=== PATIENT | female | born 1950 | race Caucasian/White ===

== ENCOUNTER 2018-07-17 09:33 | Inpatient (IN) | payer MEDICARE ==
[2018-07-17] VITALS (11 sets, daily range): BP systolic 92–153; BP diastolic 46–87
[~2018-07-17] VITALS: Ht 149.9 cm; Wt 66.1 kg
[~2018-07-17 09:33] MED LIST: ASPI-611 PO; ATOR20TA66 PO; CARV-50 PO; CHOL10002 PO; COU4T PO; EZET10TA14 PO; FERR324T4 PO; FURO-150 PO; GLIM1TAB46 PO; HUM7525 SQ; INSU100V12 SQ; KRIL1CAP19 PO; LORA10TA7 PO; METF500T7 PO; OMEP20CA10 PO; POTA10TA15 PO
[2018-07-17 10:25] LABS: BASOPHILS # (AUTO) 0.1 X10'3 (0-0.2); BASOPHILS % (AUTO) 0.8 % (0-1); EOSINOPHILS # (AUTO) 0.1 X10'3 (0-0.9); EOSINOPHILS % (AUTO) 1.1 % (0-6); LYMPHOCYTES # (AUTO) 2.9 X10'3 (1.1-4.8); LYMPHOCYTES % (AUTO) 35.1 % (21-51); MEAN CORPUSCULAR HEMOGLOBIN 30.3 PG (27.0-31.0); MEAN CORPUSCULAR HGB CONC 33.9 g/dL (33.0-36.5); MEAN CORPUSCULAR VOLUME 89.4 FL (78-98); MEAN PLATELET VOLUME 8.7 FL (7.4-10.4); MONOCYTES # (AUTO) 0.9 X10'3 (0-0.9); MONOCYTES % (AUTO) 10.3 % (2-12); NEUTROPHILS # (AUTO) 4.4 X10'3 (1.8-7.7); NEUTROPHILS % (AUTO) 52.7 % (42-75); PLATELET COUNT 356 X10'3 (140-440); RED BLOOD COUNT 2.26 X10'6 (4.20-5.60); RED CELL DISTRIBUTION WIDTH 15.5 % (11.5-14.5); WHITE BLOOD COUNT 8.3 X10'3 (4.5-11.0)
[2018-07-17 10:29] LABS: HEMATOCRIT 20.2 % (35.0-45.0); HEMOGLOBIN 6.8 g/dl (12.0-16.0)
[2018-07-17 10:35] LABS: ALANINE AMINOTRANSFERASE 25 U/L (12-78); ALBUMIN 3.7 G/DL (3.4-5.0); ALBUMIN/GLOBULIN RATIO 1.1 (1.1-1.5); ALKALINE PHOSPHATASE 58 IU/L (46-116); ANION GAP 12 (8-16); ASPARTATE AMINO TRANSFERASE 18 U/L (10-37); BILIRUBIN,TOTAL 0.4 MG/DL (0.1-1.0); BLOOD UREA NITROGEN 50 MG/DL (7-18); BUN/CREATININE RATIO 33.8 (6.6-38.0); CALCIUM 9.7 MG/DL (8.5-10.1); CHLORIDE 102 MMOL/L (99-107); CREATININE 1.48 MG/DL (0.40-0.90); GLUCOSE 234 MG/DL (70-104); POTASSIUM 3.8 MMOL/L (3.5-5.1); SODIUM 139 MMOL/L (135-145); TOTAL CARBON DIOXIDE 24.7 MMOL/L (24-32); eGFR 35 ML/MIN
[2018-07-17] MEDS ORDERED: tranexamic acid 100mg/ml inj. IV ONE (10:45)
[2018-07-17 10:49] LABS: PROTHROMBIN TIME 59.1 SECONDS (9.0-12.0)
[2018-07-17 10:50] LABS: PARTIAL THROMBOPLASTIN TIME 48 SECONDS (22-32)
[2018-07-17] MEDS ORDERED: tranexamic acid inj. 630 MG in normal saline 100ml IV soln 100 ML IV ONE (10:50)
[2018-07-17 10:52] LABS: INR 6.4 INR
[2018-07-17] MEDS ORDERED: phytonadione inj. 10 MG in normal saline 100ml IV soln 99 ML IV ONE (10:55)
[2018-07-17] MEDS ORDERED: pantoprazole 40 MG vial IV ONE (11:10)
[2018-07-17] MEDS ORDERED: ondansetron/PF 4mg/2ml inj IV PRN ×2 (11:25→16:35)
[2018-07-17] MEDS ORDERED: magnesium hydroxide 30ml (MOM) UD suspension PO PRN (11:25)
[2018-07-17] MEDS ORDERED: magnesium 2GM in 50ml NS 50 ML IV PRN ×2 (11:25→16:35)
[2018-07-17] MEDS ORDERED: mag hydrox/Alum hydrox/simeth 30ml oral suspension PO PRN (11:25)
[2018-07-17] MEDS ORDERED: potassium Cl 20 mEq SR tablet PO PRN ×3 (11:25→16:35)
[2018-07-17] MEDS ORDERED: magnesium 4gm in 100ml NS 100 ML IV PRN ×2 (11:25→16:35)
[2018-07-17] MEDS ORDERED: acetaminophen 325mg tablet PO PRN ×3 (11:25→16:35)
[2018-07-17] MEDS ORDERED: potassium Cl 40MEQ/NS 500ml 500 ML IV PRN ×3 (11:25→16:35)
[2018-07-17] MEDS ORDERED: magnesium Cl slow-release 64mg tablet PO PRN (11:25)
[2018-07-17] MEDS ORDERED: dextrose ORAL solution 15 GM/59 ML bottle PO PRN ×2 (11:30)
[2018-07-17] MEDS ORDERED: MESSAGE TO PHARMACY PO ONE (11:30)
[2018-07-17] MEDS ORDERED: glucagon, human recombinant 1mg kit SUBCUT PRN (11:30)
[2018-07-17] MEDS ORDERED: dextrose 50%-water 50ml dispensing syringe IV PRN ×2 (11:30)
--- NOTE | 2018-07-17 11:44 | NUR ---
ASSUMED CARE OF PT FROM ALEXANDREA EDWARDS
[2018-07-17 11:54] LABS: HEMOGLOBIN A1C 6.5 % (4.5-6.2)
--- NOTE | 2018-07-17 12:07 | NUR ---
PICC NURSE COMING DOWN TO START IV PT IS DIFFICULT IV START AND NEEDS A 2ND LINE
[2018-07-17 12:08] LABS: OCCULT BLOOD STOOL POSITIVE (Neg)
--- NOTE | 2018-07-17 12:10 | NUR ---
UNABLE TO OBTAIN A 2ND IV ACCESS POINT, PUT IN A CALL TO THE PICC NURSE FOR ASSISTANCE
--- NOTE | 2018-07-17 12:14 | NUR ---
UNABLE TO START ALL ORDERED IV MEDICATIONS D/T INCOMPATIBILITY, HAVE ALREADY PAGED PICC NURSE, WILL ADVISE PRIMARY RN
[2018-07-17] MEDS ORDERED: ROSU10TA27 PO (12:31)
[2018-07-17] MEDS ORDERED: COU2.5T PO (12:31)
[2018-07-17] MEDS ORDERED: OMEP20TA5 PO (12:31)
[2018-07-17] MEDS ORDERED: FERR324T4 PO (12:31)
[2018-07-17] MEDS ORDERED: METF750T2 PO (12:31)
[2018-07-17] MEDS ORDERED: WARF2TAB PO (12:31)
[2018-07-17] MEDS ORDERED: INSU3INS2 SQ (12:31)
--- NOTE | 2018-07-17 12:46 | NUR ---
PICC NURSE AT BEDSIDE
[2018-07-17] MEDS: pantoprazole 40MG/NS 100ML BAG 100 ML IV SCH ×5 (13:51→23:16)
[2018-07-17] MEDS: normal saline 1000ml 1,000 ML IV SCH ×3 (15:24→18:12)
[2018-07-17] MEDS ORDERED: famotidine 10mg/ml inj IV SCH (15:40)
[2018-07-17] MEDS ORDERED: methylPREDNISolone sod succ 125mg/2ml vial IV ONE (15:40)
[2018-07-17 15:41] LABS: INR 1.8 INR; PROTHROMBIN TIME 17.9 SECONDS (9.0-12.0)
[2018-07-17 15:44] LABS: BASOPHILS % (AUTO) 0.6 % (0-1); EOSINOPHILS # (AUTO) 0.1 X10'3 (0-0.9); EOSINOPHILS % (AUTO) 1.3 % (0-6); LYMPHOCYTES # (AUTO) 2.4 X10'3 (1.1-4.8); LYMPHOCYTES % (AUTO) 34.6 % (21-51); MEAN CORPUSCULAR HGB CONC 33.5 g/dL (33.0-36.5); MEAN CORPUSCULAR VOLUME 89.5 FL (78-98); MEAN PLATELET VOLUME 8.6 FL (7.4-10.4); MONOCYTES # (AUTO) 0.7 X10'3 (0-0.9); MONOCYTES % (AUTO) 10.2 % (2-12); NEUTROPHILS # (AUTO) 3.7 X10'3 (1.8-7.7); NEUTROPHILS % (AUTO) 53.3 % (42-75); PLATELET COUNT 296 X10'3 (140-440); RED BLOOD COUNT 1.84 X10'6 (4.20-5.60); RED CELL DISTRIBUTION WIDTH 15.4 % (11.5-14.5); WHITE BLOOD COUNT 6.9 X10'3 (4.5-11.0)
[2018-07-17] MEDS ORDERED: famotidine/PF 10 mg/ml inj IV ONE (15:50)
[2018-07-17 16:06] LABS: HEMOGLOBIN 5.5 g/dl (12.0-16.0)
[2018-07-17 16:07] LABS: HEMATOCRIT 16.4 % (35.0-45.0)
[2018-07-17 16:14] LABS: MEAN CORPUSCULAR HGB CONC 33.4 g/dL (33.0-36.5); MEAN CORPUSCULAR VOLUME 89.6 FL (78-98); MEAN PLATELET VOLUME 8.3 FL (7.4-10.4); PLATELET COUNT 314 X10'3 (140-440); RED BLOOD COUNT 1.87 X10'6 (4.20-5.60); RED CELL DISTRIBUTION WIDTH 15.7 % (11.5-14.5); WHITE BLOOD COUNT 8.9 X10'3 (4.5-11.0)
[2018-07-17 16:15] LABS: HEMOGLOBIN 5.6 g/dl (12.0-16.0)
[2018-07-17 16:16] LABS: HEMATOCRIT 16.7 % (35.0-45.0)
[2018-07-17] MEDS ORDERED: Neutra Phos packet PO PRN (16:35)
[2018-07-17] MEDS ORDERED: morphine 4 MG/ML inj SYRINge IV PRN ×2 (16:35)
[2018-07-17] MEDS ORDERED: sodium phosphate inj. 15 MMOL in dextrose 5%-water 150 ML IV PRN (16:35)
[2018-07-17] MEDS ORDERED: sodium phosphate inj. 30 MMOL in dextrose 5%-water 250 ML IV PRN (16:35)
--- NOTE | 2018-07-17 16:47 | NUR ---
Extended PIV inserted to the left upper arm cephalic vein x 1 attempt using ultrasound. Alma ortiz. Addendum: 07/17/18 at 1647 by Niki Esquivel RN Amended: Links added.
--- NOTE | 2018-07-17 16:48 | NUR ---
PT'S BP'S AT 14 MINUTE SAM OF FIRST UNIT OF BLOOD INFUSING WERE TRENDING DOWN: 77/37, 88/35, 92/62. MADE DR ARIAS AWARE, NO NEW ORDERS RECEIVED.
--- NOTE | 2018-07-17 17:20 | NUR ---
ASSUMED CARE OF PT FROM ALEXANDREA EDWADRS, PT IS RESTING QUIETLY ON GURNEY, DR MOTA WAS AT BEDSIDE 1720, BP WAS 54/25, PT PLACED IN REVERSE TRENDELBERG AND HE GAVE VERBAL ORDER TO INFUSE PRBC ON PRESSURE BAG, PT SAID SHE FELT OK, NO DIZZINESS, NO LIGHTHEADED, SKIN IS PALE, DRY AND WARM
--- NOTE | 2018-07-17 18:05 | NUR ---
PT IS RECEIVING 2ND UNIT OF PRBC, CONTINUES TO REST QUIETLY ON GURNEY, WAITING FOR ICU BED ASSIGNMENT
--- NOTE | 2018-07-17 18:17 | NUR ---
DR AVILA AT BEDSIDE TO EVAL PT
--- NOTE | 2018-07-17 19:47 | NUR ---
ASSISTING RN WITH PT CARE, 2ND UNIT PRBC FINISHED, PT RESTING QUIETLY ON GURNEY, RESP EVEN AND UNLABORED
--- NOTE | 2018-07-17 20:04 | NUR ---
PT UP TO BEDSIDE COMMODE WITHOUT ASSIST, NO CHEST PAIN, NO DIZZINESS, NO SOB
[2018-07-17] MEDS: insulin glargine (Lantus) pen - multi-dose SQ SCH (21:00)
[2018-07-17 21:05] LABS: BASOPHILS # (AUTO) 0.1 X10'3 (0-0.2); BASOPHILS % (AUTO) 0.5 % (0-1); EOSINOPHILS # (AUTO) 0.1 X10'3 (0-0.9); EOSINOPHILS % (AUTO) 0.5 % (0-6); HEMATOCRIT 27.7 % (35.0-45.0); HEMOGLOBIN 9.4 g/dl (12.0-16.0); LYMPHOCYTES # (AUTO) 2.7 X10'3 (1.1-4.8); LYMPHOCYTES % (AUTO) 26.1 % (21-51); MEAN CORPUSCULAR HEMOGLOBIN 29.3 PG (27.0-31.0); MEAN CORPUSCULAR HGB CONC 33.9 g/dL (33.0-36.5); MEAN CORPUSCULAR VOLUME 86.5 FL (78-98); MEAN PLATELET VOLUME 8.3 FL (7.4-10.4); MONOCYTES # (AUTO) 0.8 X10'3 (0-0.9); MONOCYTES % (AUTO) 7.3 % (2-12); NEUTROPHILS # (AUTO) 6.7 X10'3 (1.8-7.7); NEUTROPHILS % (AUTO) 65.6 % (42-75); PLATELET COUNT 291 X10'3 (140-440); RED BLOOD COUNT 3.21 X10'6 (4.20-5.60); RED CELL DISTRIBUTION WIDTH 16.7 % (11.5-14.5); WHITE BLOOD COUNT 10.3 X10'3 (4.5-11.0)
--- NOTE | 2018-07-17 21:48 | NUR ---
Rec'd trop result of 2.16 from lab, endorsed to IGGY Lopez, he indicates that patient is a pending admit and to notify cable mechanic, message left for May (ICU provider) to return call regarding results.
--- NOTE | 2018-07-17 22:08 | NUR ---
Rec'd report for GRACE Bautista in the ER. Patient will be up to ICU shortly.
--- NOTE | 2018-07-17 22:30 | NUR ---
Patient arrived from ER on [facility] and was able to transfer to hospital bed with standby assist. She is A&O x4, DICK and is appropriate. She continues to have elevated Troponin's and MD is aware, patient reports no chest pain of s/s. I will continue to monitor.
[2018-07-18] VITALS (28 sets, daily range): BP systolic 114–160; BP diastolic 49–88
[2018-07-18] MEDS ORDERED: metoprolol tartrate 50mg tablet PO ONE (00:10)
[2018-07-18] MEDS: pantoprazole 40MG/NS 100ML BAG 100 ML IV SCH ×2 (01:00→05:36)
[2018-07-18 01:51] LABS: BASOPHILS # (AUTO) 0.1 X10'3 (0-0.2); BASOPHILS % (AUTO) 0.5 % (0-1); EOSINOPHILS # (AUTO) 0.1 X10'3 (0-0.9); EOSINOPHILS % (AUTO) 1.2 % (0-6); HEMATOCRIT 27.3 % (35.0-45.0); HEMOGLOBIN 9.2 g/dl (12.0-16.0); LYMPHOCYTES # (AUTO) 2.3 X10'3 (1.1-4.8); LYMPHOCYTES % (AUTO) 21.5 % (21-51); MEAN CORPUSCULAR HEMOGLOBIN 29.3 PG (27.0-31.0); MEAN CORPUSCULAR HGB CONC 33.7 g/dL (33.0-36.5); MEAN CORPUSCULAR VOLUME 86.9 FL (78-98); MEAN PLATELET VOLUME 8.4 FL (7.4-10.4); MONOCYTES % (AUTO) 9.1 % (2-12); NEUTROPHILS # (AUTO) 7.3 X10'3 (1.8-7.7); NEUTROPHILS % (AUTO) 67.7 % (42-75); PLATELET COUNT 275 X10'3 (140-440); RED BLOOD COUNT 3.14 X10'6 (4.20-5.60); RED CELL DISTRIBUTION WIDTH 16.8 % (11.5-14.5); WHITE BLOOD COUNT 10.9 X10'3 (4.5-11.0)
[2018-07-18] MEDS: normal saline 1000ml 1,000 ML IV SCH (04:02)
[2018-07-18 05:12] LABS: BASOPHILS # (AUTO) 0.1 X10'3 (0-0.2); BASOPHILS % (AUTO) 0.6 % (0-1); EOSINOPHILS # (AUTO) 0.2 X10'3 (0-0.9); EOSINOPHILS % (AUTO) 1.6 % (0-6); HEMATOCRIT 25.9 % (35.0-45.0); HEMOGLOBIN 8.7 g/dl (12.0-16.0); LYMPHOCYTES # (AUTO) 1.9 X10'3 (1.1-4.8); LYMPHOCYTES % (AUTO) 16.6 % (21-51); MEAN CORPUSCULAR HEMOGLOBIN 29.3 PG (27.0-31.0); MEAN CORPUSCULAR HGB CONC 33.8 g/dL (33.0-36.5); MEAN CORPUSCULAR VOLUME 86.7 FL (78-98); MEAN PLATELET VOLUME 8.7 FL (7.4-10.4); MONOCYTES # (AUTO) 1.1 X10'3 (0-0.9); MONOCYTES % (AUTO) 9.7 % (2-12); NEUTROPHILS # (AUTO) 8.1 X10'3 (1.8-7.7); NEUTROPHILS % (AUTO) 71.5 % (42-75); PLATELET COUNT 273 X10'3 (140-440); RED BLOOD COUNT 2.98 X10'6 (4.20-5.60); RED CELL DISTRIBUTION WIDTH 16.6 % (11.5-14.5); WHITE BLOOD COUNT 11.3 X10'3 (4.5-11.0)
[2018-07-18 05:29] LABS: ALANINE AMINOTRANSFERASE 21 U/L (12-78); ALBUMIN 3.2 G/DL (3.4-5.0); ALBUMIN/GLOBULIN RATIO 1.1 (1.1-1.5); ALKALINE PHOSPHATASE 51 IU/L (46-116); ANION GAP 16 (8-16); ASPARTATE AMINO TRANSFERASE 50 U/L (10-37); BILIRUBIN,TOTAL 0.5 MG/DL (0.1-1.0); BLOOD UREA NITROGEN 29 MG/DL (7-18); BUN/CREATININE RATIO 24.4 (6.6-38.0); CALCIUM 8.2 MG/DL (8.5-10.1); CHLORIDE 108 MMOL/L (99-107); CREATININE 1.19 MG/DL (0.40-0.90); GLUCOSE 163 MG/DL (70-104); MAGNESIUM 1.3 MG/DL (1.5-2.4); PHOSPHORUS 2.8 MG/DL (2.3-4.5); POTASSIUM 3.5 MMOL/L (3.5-5.1); SODIUM 145 MMOL/L (135-145); TOTAL CARBON DIOXIDE 21.4 MMOL/L (24-32); TOTAL PROTEIN 6.1 G/DL (6.4-8.2); eGFR 45 ML/MIN
[2018-07-18 05:43] LABS: INR 1.2 INR; PROTHROMBIN TIME 11.7 SECONDS (9.0-12.0)
[2018-07-18 05:44] LABS: PARTIAL THROMBOPLASTIN TIME 28 SECONDS (22-32)
--- NOTE | 2018-07-18 06:36 | NUR ---
Problems reprioritized. Patient report given, questions answered & plan of care reviewed with GRACE Mccarty.
[2018-07-18] MEDS: K and/or MAG REPLACEMENT MC SCH (08:00)
[2018-07-18] MEDS ORDERED: metoprolol tartrate 25mg tablet PO SCH (08:00)
[2018-07-18] MEDS ORDERED: fentaNYL/PF 50MCG/1 ML 2ML syringe ONE (08:37)
[2018-07-18] MEDS ORDERED: MIDAZolam 5mg/5ml vial ONE (08:38)
[2018-07-18] MEDS ORDERED: LIDOcaine Viscous 15ml cup ONE (08:38)
[2018-07-18] MEDS ORDERED: amiodarone 150mg/dext, iso-os 100 ML IV ONE (09:40)
[2018-07-18] MEDS ORDERED: pantoprazole 40MG/NS 100ML BAG 100 ML IV SCH (11:00)
[2018-07-18 11:22] LABS: BASOPHILS # (AUTO) 0.1 X10'3 (0-0.2); BASOPHILS % (AUTO) 0.5 % (0-1); EOSINOPHILS # (AUTO) 0.1 X10'3 (0-0.9); EOSINOPHILS % (AUTO) 0.8 % (0-6); HEMOGLOBIN 8.2 g/dl (12.0-16.0); LYMPHOCYTES # (AUTO) 1.2 X10'3 (1.1-4.8); LYMPHOCYTES % (AUTO) 11.2 % (21-51); MEAN CORPUSCULAR HGB CONC 32.9 g/dL (33.0-36.5); MEAN PLATELET VOLUME 8.2 FL (7.4-10.4); MONOCYTES # (AUTO) 0.8 X10'3 (0-0.9); MONOCYTES % (AUTO) 7.3 % (2-12); NEUTROPHILS # (AUTO) 8.7 X10'3 (1.8-7.7); NEUTROPHILS % (AUTO) 80.2 % (42-75); PLATELET COUNT 252 X10'3 (140-440); RED BLOOD COUNT 2.84 X10'6 (4.20-5.60); RED CELL DISTRIBUTION WIDTH 17.5 % (11.5-14.5); WHITE BLOOD COUNT 10.8 X10'3 (4.5-11.0)
[2018-07-18] MEDS: amiodarone/D5 360MG/200ML BAG 200 ML IV SCH ×3 (12:34→21:48)
[2018-07-18] MEDS: insulin Lispro (HumaLOG) vial - multi-dose SQ SCH ×2 (13:26→22:07)
[2018-07-18 16:12] LABS: BASOPHILS # (AUTO) 0.1 X10'3 (0-0.2); BASOPHILS % (AUTO) 0.5 % (0-1); EOSINOPHILS % (AUTO) 0.1 % (0-6); HEMOGLOBIN 7.6 g/dl (12.0-16.0); LYMPHOCYTES # (AUTO) 0.8 X10'3 (1.1-4.8); MEAN CORPUSCULAR HEMOGLOBIN 29.3 PG (27.0-31.0); MEAN CORPUSCULAR HGB CONC 33.2 g/dL (33.0-36.5); MEAN PLATELET VOLUME 8.3 FL (7.4-10.4); MONOCYTES # (AUTO) 0.8 X10'3 (0-0.9); MONOCYTES % (AUTO) 6.4 % (2-12); NEUTROPHILS # (AUTO) 10.2 X10'3 (1.8-7.7); PLATELET COUNT 254 X10'3 (140-440); RED BLOOD COUNT 2.61 X10'6 (4.20-5.60); RED CELL DISTRIBUTION WIDTH 17.1 % (11.5-14.5); WHITE BLOOD COUNT 11.9 X10'3 (4.5-11.0)
--- NOTE | 2018-07-18 18:30 | NUR ---
Patient in room ICU 2044. I have received report from Bibiana EDWARDS and had the opportunity to ask questions and assume patient care.
[2018-07-18] MEDS: OMEGA-3/DHA/EPA/FISH OIL 1 EACH CAPSULE.DR PO SCH (20:26)
[2018-07-18] MEDS: ferrous sulfate 325mg tablet PO SCH (20:26)
[2018-07-18] MEDS: vitamin D (cholecalciferol) 1,000 unit tablet PO SCH (20:27)
[2018-07-18] MEDS: carVEDilol 12.5mg tablet PO SCH (20:27)
[2018-07-18] MEDS: insulin glargine (Lantus) pen - multi-dose SQ SCH (22:06)
[2018-07-19] VITALS (20 sets, daily range): BP systolic 88–125; BP diastolic 39–59
[2018-07-19 03:10] LABS: BASOPHILS % (AUTO) 0.2 % (0-1); EOSINOPHILS % (AUTO) 0 % (0-6); HEMATOCRIT 28.6 % (35.0-45.0); HEMOGLOBIN 9.7 g/dl (12.0-16.0); LYMPHOCYTES # (AUTO) 0.8 X10'3 (1.1-4.8); LYMPHOCYTES % (AUTO) 8.1 % (21-51); MEAN CORPUSCULAR HEMOGLOBIN 29.8 PG (27.0-31.0); MEAN CORPUSCULAR HGB CONC 33.8 g/dL (33.0-36.5); MEAN CORPUSCULAR VOLUME 88.2 FL (78-98); MEAN PLATELET VOLUME 8.1 FL (7.4-10.4); MONOCYTES # (AUTO) 0.8 X10'3 (0-0.9); NEUTROPHILS # (AUTO) 8.4 X10'3 (1.8-7.7); NEUTROPHILS % (AUTO) 83.7 % (42-75); PLATELET COUNT 242 X10'3 (140-440); RED BLOOD COUNT 3.24 X10'6 (4.20-5.60); RED CELL DISTRIBUTION WIDTH 16.2 % (11.5-14.5); WHITE BLOOD COUNT 10.1 X10'3 (4.5-11.0)
[2018-07-19 03:18] LABS: INR 1.1 INR; PROTHROMBIN TIME 11.4 SECONDS (9.0-12.0)
[2018-07-19 03:19] LABS: PARTIAL THROMBOPLASTIN TIME 31 SECONDS (22-32)
[2018-07-19 03:27] LABS: ALANINE AMINOTRANSFERASE 26 U/L (12-78); ALKALINE PHOSPHATASE 53 IU/L (46-116); ANION GAP 14 (8-16); ASPARTATE AMINO TRANSFERASE 54 U/L (10-37); BILIRUBIN,TOTAL 0.8 MG/DL (0.1-1.0); BLOOD UREA NITROGEN 21 MG/DL (7-18); BUN/CREATININE RATIO 14.7 (6.6-38.0); CALCIUM 8.1 MG/DL (8.5-10.1); CHLORIDE 107 MMOL/L (99-107); CREATININE 1.43 MG/DL (0.40-0.90); GLUCOSE 304 MG/DL (70-104); MAGNESIUM 1.3 MG/DL (1.5-2.4); PHOSPHORUS 2.8 MG/DL (2.3-4.5); POTASSIUM 3.6 MMOL/L (3.5-5.1); SODIUM 141 MMOL/L (135-145); TOTAL CARBON DIOXIDE 19.8 MMOL/L (24-32); TOTAL PROTEIN 6.1 G/DL (6.4-8.2); eGFR 37 ML/MIN
--- NOTE | 2018-07-19 06:30 | NUR ---
Patient in room ICU 2044. I have received report from Evelina Espitia RN and had the opportunity to ask questions and assume patient care.
--- NOTE | 2018-07-19 06:30 | NUR ---
Problems reprioritized. Patient report given, questions answered & plan of care reviewed with Bibiana EDWARDS.
[2018-07-19] MEDS: amiodarone/D5 360MG/200ML BAG 200 ML IV SCH (06:48)
[2018-07-19] MEDS: K and/or MAG REPLACEMENT MC SCH (08:00)
[2018-07-19] MEDS: vitamin D (cholecalciferol) 1,000 unit tablet PO SCH ×2 (08:29→20:12)
[2018-07-19] MEDS: carVEDilol 12.5mg tablet PO SCH ×2 (08:29→20:12)
[2018-07-19] MEDS: atorvastatin 10mg tablet PO SCH (08:29)
[2018-07-19] MEDS: ferrous sulfate 325mg tablet PO SCH ×2 (08:30→20:12)
[2018-07-19] MEDS: ezetimibe 10mg tablet PO SCH (08:30)
[2018-07-19] MEDS: OMEGA-3/DHA/EPA/FISH OIL 1 EACH CAPSULE.DR PO SCH ×2 (08:30→20:12)
[2018-07-19] MEDS: magnesium Cl slow-release 64mg tablet PO PRN (08:35)
[2018-07-19] MEDS: insulin Lispro (HumaLOG) vial - multi-dose SQ SCH ×4 (08:47→22:03)
--- NOTE | 2018-07-19 10:45 | NUR ---
co of shortness of breath when laying down in bed, unable to maintain sats on room air, sitting up in bed , o2 placed back on at 2 l/min call placed to Dr Childress and updated and new orders received.
[2018-07-19] MEDS ORDERED: furosemide 40mg/4ml inj IV ONE (11:10)
[2018-07-19] MEDS: amiodarone 200mg tablet PO SCH ×2 (11:14→20:12)
[2018-07-19] MEDS ORDERED: bisacodyl 10mg suppository rectal RC PRN (16:35)
--- NOTE | 2018-07-19 18:00 | NUR ---
Received report from CICU RN, Bibiana @[id number]. Pt arrived at unit at this time (1800) via wheelchair in stable condition, family in attendance. Pt oriented to room, on 2L/min O2. Seated in chair at bedside, call light in reach. Patient report given, questions answered & plan of care reviewed with GRACE Vazquez.
--- NOTE | 2018-07-19 18:00 | NUR ---
transfered via wheelchair, telemetry and RN in attendance to 3015b, all belongings,and meds transfered.
[2018-07-19] MEDS: insulin glargine (Lantus) pen - multi-dose SQ SCH (22:02)
[2018-07-20 03:00] VITALS: BP 111/57
[2018-07-20] MEDS: magnesium Cl slow-release 64mg tablet PO PRN (03:21)
[2018-07-20 06:00] VITALS: BP 113/66
--- NOTE | 2018-07-20 06:21 | NUR ---
Problems reprioritized. Patient report given, questions answered & plan of care reviewed with GRACE Patel.
[2018-07-20 06:38] LABS: BASOPHILS % (AUTO) 0.5 % (0-1); EOSINOPHILS # (AUTO) 0.3 X10'3 (0-0.9); EOSINOPHILS % (AUTO) 3.4 % (0-6); HEMATOCRIT 29.5 % (35.0-45.0); HEMOGLOBIN 10.2 g/dl (12.0-16.0); LYMPHOCYTES # (AUTO) 1.5 X10'3 (1.1-4.8); LYMPHOCYTES % (AUTO) 16.5 % (21-51); MEAN CORPUSCULAR HGB CONC 34.4 g/dL (33.0-36.5); MEAN CORPUSCULAR VOLUME 87.2 FL (78-98); MEAN PLATELET VOLUME 8.8 FL (7.4-10.4); MONOCYTES # (AUTO) 0.9 X10'3 (0-0.9); MONOCYTES % (AUTO) 9.6 % (2-12); NEUTROPHILS # (AUTO) 6.6 X10'3 (1.8-7.7); PLATELET COUNT 268 X10'3 (140-440); RED BLOOD COUNT 3.38 X10'6 (4.20-5.60); RED CELL DISTRIBUTION WIDTH 16.6 % (11.5-14.5); WHITE BLOOD COUNT 9.4 X10'3 (4.5-11.0)
[2018-07-20 06:45] LABS: INR 1.1 INR; PARTIAL THROMBOPLASTIN TIME 25 SECONDS (22-32); PROTHROMBIN TIME 11.1 SECONDS (9.0-12.0)
--- NOTE | 2018-07-20 06:45 | NUR ---
Patient in room PCU 3015. I have received report from GRACE Vazquez and had the opportunity to ask questions and assume patient care.
[2018-07-20 07:10] LABS: ALANINE AMINOTRANSFERASE 78 U/L (12-78); ALBUMIN 2.9 G/DL (3.4-5.0); ALBUMIN/GLOBULIN RATIO 0.9 (1.1-1.5); ALKALINE PHOSPHATASE 85 IU/L (46-116); ANION GAP 13 (8-16); ASPARTATE AMINO TRANSFERASE 110 U/L (10-37); BILIRUBIN,TOTAL 0.7 MG/DL (0.1-1.0); BLOOD UREA NITROGEN 40 MG/DL (7-18); BUN/CREATININE RATIO 21.6 (6.6-38.0); CALCIUM 8.7 MG/DL (8.5-10.1); CHLORIDE 107 MMOL/L (99-107); CREATININE 1.85 MG/DL (0.40-0.90); GLUCOSE 199 MG/DL (70-104); MAGNESIUM 1.6 MG/DL (1.5-2.4); PHOSPHORUS 2.4 MG/DL (2.3-4.5); POTASSIUM 3.4 MMOL/L (3.5-5.1); SODIUM 140 MMOL/L (135-145); TOTAL CARBON DIOXIDE 20.3 MMOL/L (24-32); TOTAL PROTEIN 6.2 G/DL (6.4-8.2); eGFR 27 ML/MIN
[2018-07-20] MEDS: K and/or MAG REPLACEMENT MC SCH (07:19)
[2018-07-20] MEDS: ezetimibe 10mg tablet PO SCH (07:36)
[2018-07-20] MEDS: OMEGA-3/DHA/EPA/FISH OIL 1 EACH CAPSULE.DR PO SCH (07:36)
[2018-07-20] MEDS: amiodarone 200mg tablet PO SCH ×2 (07:37→10:35)
[2018-07-20] MEDS: potassium Cl 20 mEq SR tablet PO PRN ×2 (07:37→11:46)
[2018-07-20] MEDS: ferrous sulfate 325mg tablet PO SCH (07:38)
[2018-07-20] MEDS: vitamin D (cholecalciferol) 1,000 unit tablet PO SCH (07:38)
[2018-07-20] MEDS: atorvastatin 10mg tablet PO SCH (07:38)
[2018-07-20] MEDS: carVEDilol 12.5mg tablet PO SCH (08:00)
[2018-07-20] MEDS ORDERED: furosemide 20MG tablet PO SCH (08:00)
[2018-07-20] MEDS: insulin Lispro (HumaLOG) vial - multi-dose SQ SCH ×2 (08:45→13:12)
[2018-07-20 11:40] VITALS: BP 109/52
--- NOTE | 2018-07-20 11:54 | NUR ---
PAGER ID: [phone] MESSAGE: FYI-PATIENT SAURABH LAWTON ROOM 3015 B AMBULATED 300 FEET WITHOUT DIZZINESS, SAT 99% ON RA, RYAN, GRACE EXTENSION , AWAITING RETURN CALL
[2018-07-20] MEDS ORDERED: AMIO200T40 PO (12:10)
--- NOTE | 2018-07-20 12:58 | NUR ---
PAGER ID: [phone] MESSAGE: [id number] Connor Velasquez: Dr Sykes called and recommended stopping the Lasix due to her creatinine levels going up. Do you want her to take the Lasix PO 20mg at home or do you want me to tell her to stop Lasix? GRACE Patel Ext [phone]
--- NOTE | 2018-07-20 16:29 | NUR ---
Discharged. IV and tele DC'd. Stable for DC per MD. DM survival skills given. Educated on meds and follow-up.
--- NOTE | 2018-07-20 18:35 | NUR ---
orientee documentation: I have reviewed and agree with all interventions, assessments performed and documented by GRACE Schulte.
--- NOTE | 2018-07-20 18:36 | NUR ---
orientee Medication Administration: For this medication-pass time frame, all medication were reviewed, dispensed, administered and documented per hospital policy by GRACE Schulte.
== END 2018-07-20 14:20 | disposition home health service (06) | DRG 377 ==
LOC: ER 09:33 → ED HOLD 11:21 → ICU 2S 22:41 → PCU 3S 07-19 18:22
PROVIDERS: ADMIT Internal Medicine; ATTEND Family Medicine
PROC: 30233K1 Transfusion of Nonautologous Frozen Plasma into Peripheral Vein, Percutaneous Approach (ICD-10-PCS; 2018-07-17)
PROC: 30233N1 Transfusion of Nonautologous Red Blood Cells into Peripheral Vein, Percutaneous Approach (ICD-10-PCS; 2018-07-17)
PROC: 30233N1 Transfusion of Nonautologous Red Blood Cells into Peripheral Vein, Percutaneous Approach (ICD-10-PCS; principal; 2018-07-18)
PROC: 0DB68ZX Excision of Stomach, Via Natural or Artificial Opening Endoscopic, Diagnostic (ICD-10-PCS; 2018-07-18)
DX: K92.2 Gastrointestinal hemorrhage, unspecified (principal); I21.A1 Myocardial infarction type 2; N17.9 Acute kidney failure, unspecified; D62 Acute posthemorrhagic anemia; I50.22 Chronic systolic (congestive) heart failure; D68.9 Coagulation defect, unspecified; R57.9 Shock, unspecified; I24.8 Other forms of acute ischemic heart disease; E11.9 Type 2 diabetes mellitus without complications; E78.5 Hyperlipidemia, unspecified; I11.0 Hypertensive heart disease with heart failure; I25.10 Atherosclerotic heart disease of native coronary artery without angina pectoris; I48.0 Paroxysmal atrial fibrillation; K44.9 Diaphragmatic hernia without obstruction or gangrene; M19.90 Unspecified osteoarthritis, unspecified site; Z98.84 Bariatric surgery status; Z95.1 Presence of aortocoronary bypass graft; Z79.01 Long term (current) use of anticoagulants; Z79.82 Long term (current) use of aspirin; Z79.899 Other long term (current) drug therapy; Z88.1 Allergy status to other antibiotic agents; Z80.8 Family history of malignant neoplasm of other organs or systems; Z80.1 Family history of malignant neoplasm of trachea, bronchus and lung; Z82.49 Family history of ischemic heart disease and other diseases of the circulatory system; Z83.3 Family history of diabetes mellitus
CPT/HCPCS: 36415; 43239; 71045; 80053; 82150; 82272; 82948; 83036; 83605; 83690; 83735; 84100; 84439; 84443; 84484; 85025; 85027; 85610; 85730; 86885; 86900; 86901; 86920; 87070; 88305; 93005; 93306; 97161; 97530; 99152; 99291; 99292; C9113; G0378; J0282; J1815; J1940; J2250; J3010; J3430; J3490; J7030; P9016; P9017

== ENCOUNTER 2018-08-10 07:38 | Inpatient (IN) | payer MEDICARE | END 2018-08-11 15:45 | disposition home or self-care (01) | LOC: ER 07:38 → ED HOLD 11:11 → SUR 3N 19:17 ==

== ENCOUNTER 2019-04-08 12:36 | Emergency (ER) | payer MEDICARE ==
[~2019-04-08] VITALS: Ht 149.9 cm; Wt 59.5 kg
[~2019-04-08 12:36] MED LIST changes: +AMIO100T4 PO; +APIX5TAB3 PO; -ASPI-611 PO; -ATOR20TA66 PO; +BENA5TAB6 PO; -COU4T PO; -EZET10TA14 PO; +EZET10TA21 PO; -FERR324T4 PO; -FURO-150 PO; +FURO40TA4 PO; -GLIM1TAB46 PO; -HUM7525 SQ; -INSU100V12 SQ; +INSU3INS2 SQ; +LISI2.5T2 PO; -LORA10TA7 PO; -METF500T7 PO; +METF750T46 PO; -OMEP20CA10 PO; +OMEP40CA13 PO; -POTA10TA15 PO; +POTA20TA19 PO; +ROSU10TA28 PO
[2019-04-08 13:44] LABS: BASOPHILS # (AUTO) 0.1 X10'3 (0-0.2); BASOPHILS % (AUTO) 0.8 % (0-1); EOSINOPHILS # (AUTO) 0.1 X10'3 (0-0.9); EOSINOPHILS % (AUTO) 0.9 % (0-6); HEMATOCRIT 28.1 % (35.0-45.0); HEMOGLOBIN 9.2 g/dl (12.0-16.0); LYMPHOCYTES # (AUTO) 1.8 X10'3 (1.1-4.8); LYMPHOCYTES % (AUTO) 19.3 % (21-51); MEAN CORPUSCULAR HEMOGLOBIN 28.5 PG (27.0-31.0); MEAN CORPUSCULAR HGB CONC 32.7 g/dL (33.0-36.5); MEAN CORPUSCULAR VOLUME 86.9 FL (78-98); MEAN PLATELET VOLUME 7.8 FL (7.4-10.4); MONOCYTES # (AUTO) 0.8 X10'3 (0-0.9); NEUTROPHILS # (AUTO) 6.8 X10'3 (1.8-7.7); PLATELET COUNT 544 X10'3 (140-440); RED BLOOD COUNT 3.24 X10'6 (4.20-5.60); RED CELL DISTRIBUTION WIDTH 15.6 % (11.5-14.5); WHITE BLOOD COUNT 9.5 X10'3 (4.5-11.0)
--- NOTE | 2019-04-08 13:52 | NUR ---
PT WENT TO HER PCP AND THEY WANTED HER TO COME TO THE ER SHE SAYS SHE HAS BEEN FEELING DIZZY OFF AND ON FOR THE PAST WEEK
[2019-04-08 14:06] LABS: ALANINE AMINOTRANSFERASE 26 U/L (12-78); ALBUMIN 3.4 G/DL (3.4-5.0); ALBUMIN/GLOBULIN RATIO 0.8 (1.1-1.5); ALKALINE PHOSPHATASE 98 IU/L (46-116); ANION GAP 10 (8-16); ASPARTATE AMINO TRANSFERASE 24 U/L (10-37); BILIRUBIN,TOTAL 0.2 MG/DL (0.1-1.0); BLOOD UREA NITROGEN 34 MG/DL (7-18); BUN/CREATININE RATIO 21.7 (6.6-38.0); CALCIUM 8.7 MG/DL (8.5-10.1); CHLORIDE 105 MMOL/L (99-107); CREATININE 1.57 MG/DL (0.40-0.90); GLUCOSE 90 MG/DL (70-104); POTASSIUM 4.3 MMOL/L (3.5-5.1); SODIUM 143 MMOL/L (135-145); TOTAL CARBON DIOXIDE 28.2 MMOL/L (24-32); TOTAL PROTEIN 7.6 G/DL (6.4-8.2); eGFR 33 ML/MIN
--- NOTE | 2019-04-08 14:12 | NUR ---
ASSISSTED MD WITH RECTAL EXAM STANDBY
[2019-04-08] MEDS ORDERED: normal saline 1000ml 1,000 ML IV ONE (14:45)
[2019-04-08] MEDS ORDERED: sodium ferric gluc complex inj 125 MG in normal saline 100ml IV soln 100 ML IV ONE (15:00)
[2019-04-08 16:45] VITALS: BP 79/49
== END 2019-04-08 17:36 | disposition home or self-care (01) ==
LOC: ER 12:37
DX: D64.9 Anemia, unspecified (principal); I48.91 Unspecified atrial fibrillation; I25.10 Atherosclerotic heart disease of native coronary artery without angina pectoris; I10 Essential (primary) hypertension; E11.9 Type 2 diabetes mellitus without complications; Z98.84 Bariatric surgery status; Z95.1 Presence of aortocoronary bypass graft; Z88.1 Allergy status to other antibiotic agents; Z79.84 Long term (current) use of oral hypoglycemic drugs; Z79.4 Long term (current) use of insulin; Z79.899 Other long term (current) drug therapy
CPT/HCPCS: 36415; 71045; 80053; 82948; 84484; 85025; 93005; 96365; 99284; J2916; J7030

== ENCOUNTER 2020-08-30 13:13 | Day surgery (SDC) | payer MEDICARE ==
[~2020-08-30] VITALS: Ht 149.9 cm; Wt 59.3 kg
[2020-08-30] VITALS (8 sets, daily range): BP systolic 98–116; BP diastolic 35–59
[~2020-08-30 13:13] MED LIST changes: -AMIO100T4 PO; +AMIO200T67 PO; -BENA5TAB6 PO; -CARV-50 PO; -EZET10TA21 PO; +EZET10TA6 PO; +FURO20TA4 PO; -FURO40TA4 PO; +LEVO25TA2 PO; +METO-395 PO; +POTA10TA19 PO; -POTA20TA19 PO; +PRAV40TA3 PO; -ROSU10TA28 PO
[2020-08-30] MEDS ORDERED: FURO40TA4 PO (13:54)
[2020-08-30] MEDS ORDERED: OMEP-50 PO (13:54)
[2020-08-30] MEDS ORDERED: METF-950 PO (13:54)
[2020-08-30] MEDS ORDERED: NOVLG SQ (13:54)
[2020-08-30] MEDS ORDERED: EZET10TA48 PO (13:54)
[2020-08-30] MEDS ORDERED: AMIO200T62 PO (13:54)
[2020-08-30] MEDS ORDERED: BISO10TA PO (13:59)
[2020-08-30] MEDS ORDERED: APIX5TAB3 PO (13:59)
[2020-08-30] MEDS ORDERED: FLAX SEED OIL PO (13:59)
[2020-08-30] MEDS ORDERED: FERR-119 PO (13:59)
[2020-08-30] MEDS ORDERED: MIDAZolam 1mg/ml 10ml vial IV ONE (14:10)
[2020-08-30] MEDS ORDERED: normal saline 1000ml 1,000 ML IV SCH (14:10)
[2020-08-30] MEDS ORDERED: fentaNYL/PF 50MCG/1 ML 2ML syringe IV ONE ×2 (14:10→14:45)
[2020-08-30 15:22] LABS: HEMATOCRIT 39.9 % (35.0-45.0); HEMOGLOBIN 12.9 g/dl (12.0-16.0); MEAN CORPUSCULAR VOLUME 89.2 FL (78-98); RED BLOOD COUNT 4.47 X10'6 (4.20-5.60); WHITE BLOOD COUNT 6.7 X10'3 (4.5-11.0)
[2020-08-30 15:23] LABS: BASOPHILS # (AUTO) 0.1 X10'3 (0-0.2); BASOPHILS % (AUTO) 1.2 % (0-1); EOSINOPHILS # (AUTO) 0.2 X10'3 (0-0.9); EOSINOPHILS % (AUTO) 2.9 % (0-6); LYMPHOCYTES # (AUTO) 1.5 X10'3 (1.1-4.8); MEAN CORPUSCULAR HEMOGLOBIN 28.7 PG (27.0-31.0); MEAN CORPUSCULAR HGB CONC 32.2 g/dL (33.0-36.5); MEAN PLATELET VOLUME 8.4 FL (7.4-10.4); MONOCYTES # (AUTO) 0.7 X10'3 (0-0.9); MONOCYTES % (AUTO) 10.8 % (2-12); NEUTROPHILS # (AUTO) 4.2 X10'3 (1.8-7.7); NEUTROPHILS % (AUTO) 63.1 % (42-75); PLATELET COUNT 306 X10'3 (140-440); RED CELL DISTRIBUTION WIDTH 20.8 % (11.5-14.5)
[2020-08-30 15:35] LABS: ALBUMIN 3.2 G/DL (3.4-5.0); ANION GAP 9 (8-16); BLOOD UREA NITROGEN 22 MG/DL (7-18); BUN/CREATININE RATIO 16.1 (6.6-38.0); CHLORIDE 107 MMOL/L (99-107); CREATININE 1.37 MG/DL (0.40-0.90); GLUCOSE 150 MG/DL (70-104); POTASSIUM 3.2 MMOL/L (3.5-5.1); SODIUM 145 MMOL/L (135-145); TOTAL CARBON DIOXIDE 28.8 MMOL/L (24-32); eGFR 38 ML/MIN
[2020-08-30 16:23] LABS: PLATELET ESTIMATE NORMAL
[2020-08-30 16:24] LABS: ANISOCYTOSIS 3+; HYPOCHROMASIA 1+
[2020-08-30 16:25] LABS: BURR CELLS FEW; ELLIPTOCYTES 1+; SCHISTOCYTES FEW; TEAR DROP CELLS FEW
== END 2020-08-30 18:00 | disposition home or self-care (01) ==
LOC: SSTAY O 13:13
PROVIDERS: ATTEND Internal Medicine Interventional Cardiology
DX: I48.91 Unspecified atrial fibrillation (principal); I10 Essential (primary) hypertension; E11.9 Type 2 diabetes mellitus without complications; I25.5 Ischemic cardiomyopathy; I13.0 Hypertensive heart and chronic kidney disease with heart failure and stage 1 through stage 4 chronic kidney disease, or unspecified chronic kidney disease; N18.9 Chronic kidney disease, unspecified; I50.9 Heart failure, unspecified
CPT/HCPCS: 36415; 80048; 82948; 85025; 85610; 92960; 93005; 94799; J2250; J3010; J7030; 85008

== ENCOUNTER 2022-01-31 11:40 | Day surgery (SDC) | payer MEDICARE ==
[2022-01-26 12:55] LABS: BASOPHILS % (AUTO) 0.6 % (0-1); EOSINOPHILS # (AUTO) 0.1 X10'3 (0-0.9); HEMOGLOBIN 10.5 g/dl (12.0-16.0); LYMPHOCYTES # (AUTO) 0.9 X10'3 (1.1-4.8); LYMPHOCYTES % (AUTO) 14.6 % (21-51); MEAN CORPUSCULAR HEMOGLOBIN 29.3 PG (27.0-31.0); MEAN CORPUSCULAR HGB CONC 32.8 g/dL (33.0-36.5); MEAN CORPUSCULAR VOLUME 89.4 FL (78-98); MEAN PLATELET VOLUME 8.3 FL (7.4-10.4); MONOCYTES # (AUTO) 0.6 X10'3 (0-0.9); MONOCYTES % (AUTO) 9.9 % (2-12); NEUTROPHILS # (AUTO) 4.7 X10'3 (1.8-7.7); NEUTROPHILS % (AUTO) 73.9 % (42-75); PLATELET COUNT 248 X10'3 (140-440); RED BLOOD COUNT 3.58 X10'6 (4.20-5.60); RED CELL DISTRIBUTION WIDTH 22.5 % (11.5-14.5); WHITE BLOOD COUNT 6.4 X10'3 (4.5-11.0)
[2022-01-26 13:09] LABS: APTT 40 SECONDS (22-32)
[2022-01-26 13:10] LABS: ALBUMIN 2.9 G/DL (3.4-5.0); ANION GAP 11 (8-16); BLOOD UREA NITROGEN 18 MG/DL (7-18); BUN/CREATININE RATIO 13.5 (6.6-38.0); CALCIUM 8.9 MG/DL (8.5-10.1); CHLORIDE 104 MMOL/L (99-107); CREATININE 1.33 MG/DL (0.40-0.90); GLUCOSE 136 MG/DL (70-104); POTASSIUM 3.4 MMOL/L (3.5-5.1); SODIUM 142 MMOL/L (135-145); TOTAL CARBON DIOXIDE 26.6 MMOL/L (24-32); eGFR 39 ML/MIN
[2022-01-26 13:50] LABS: ANISOCYTOSIS 3+; HYPOCHROMASIA 1+; PLATELET ESTIMATE NORMAL
[2022-01-26 13:51] LABS: BURR CELLS 1+
[2022-01-26 13:52] LABS: POLYCHROMASIA FEW; SCHISTOCYTES FEW
[2022-01-26 13:53] LABS: ELLIPTOCYTES 1+
[~2022-01-31] VITALS: Ht 149.9 cm; Wt 62.1 kg
[2022-01-31] VITALS (8 sets, daily range): BP systolic 102–115; BP diastolic 56–71
[~2022-01-31 11:40] MED LIST changes: +AMIO200T62 PO; -AMIO200T67 PO; +BISO10TA16 PO; +EZET10TA48 PO; -EZET10TA6 PO; +FERR-119 PO; +FLAX SEED OIL PO; -FURO20TA4 PO; +FURO40TA4 PO; -INSU3INS2 SQ; -KRIL1CAP19 PO; +LISI2.5T14 PO; -LISI2.5T2 PO; +METF-1203 PO; -METF750T46 PO; -METO-395 PO; +NOVLG SQ; +OMEP20CA16 PO; -OMEP40CA13 PO; +POTA-192 PO; -POTA10TA19 PO; -PRAV40TA3 PO
[2022-01-31] MEDS ORDERED: diphenhydrAMINE 25mg capsule PO PRN (12:10)
[2022-01-31] MEDS ORDERED: LORazepam 0.5 MG tablet PO PRN (12:10)
[2022-01-31] MEDS ORDERED: normal saline 1,000 ML IV SCH (12:10)
[2022-01-31] MEDS ORDERED: INSU100I40 SQ (12:12)
[2022-01-31] MEDS ORDERED: AMIO200T61 PO (12:12)
[2022-01-31] MEDS ORDERED: ROSU10TA2 PO (12:12)
[2022-01-31] MEDS ORDERED: DAPA10TA PO (12:12)
[2022-01-31] MEDS ORDERED: METO50TA7 PO (12:12)
[2022-01-31] MEDS ORDERED: midazolam 1 mg/ML 2ml injection ONE (13:10)
[2022-01-31] MEDS ORDERED: LIDOcaine 1%/PF 5ML 10 MG/ML VIAL ONE ×3 (13:10→13:14)
[2022-01-31] MEDS ORDERED: iohexol 350MG/ML 100ml bottle IV ONE (13:10)
[2022-01-31] MEDS ORDERED: fentaNYL/PF 50MCG/1 ML 2ML syringe ONE (13:10)
[2022-01-31] MEDS ORDERED: HYDROcodone/acetaminophen 10/325mg tab PO PRN (14:50)
[2022-01-31] MEDS ORDERED: OXAZEpam 15mg capsule PO PRN (14:50)
[2022-01-31] MEDS ORDERED: ondansetron/PF 4mg/2ml inj IV PRN (14:50)
[2022-01-31] MEDS ORDERED: HYDROcodone/acetaminophen 5mg/325mg tablet PO PRN (14:50)
== END 2022-01-31 16:50 | disposition home or self-care (01) ==
LOC: SSTAY O 11:40
PROVIDERS: ATTEND Student in an Organized Health Care Education/Training Program
DX: I25.10 Atherosclerotic heart disease of native coronary artery without angina pectoris (principal); I42.9 Cardiomyopathy, unspecified; I13.0 Hypertensive heart and chronic kidney disease with heart failure and stage 1 through stage 4 chronic kidney disease, or unspecified chronic kidney disease; I25.2 Old myocardial infarction; E11.22 Type 2 diabetes mellitus with diabetic chronic kidney disease; N18.9 Chronic kidney disease, unspecified; I50.9 Heart failure, unspecified; I49.01 Ventricular fibrillation; I48.91 Unspecified atrial fibrillation; Z79.899 Other long term (current) drug therapy; Z79.01 Long term (current) use of anticoagulants; Z98.890 Other specified postprocedural states; Z88.8 Allergy status to other drugs, medicaments and biological substances
CPT/HCPCS: 36415; 80048; 85025; 85610; 85730; 93005; 93459; 99152; 99153; C1760; C1769; J1644; J2250; J3010; J3490; J7030; Q9967; 85008; A4620; A6258

== ENCOUNTER 2023-01-27 11:39 | Inpatient (IN) | payer MEDICARE ==
[~2023-01-27] VITALS: Ht 149.9 cm; Wt 60.2 kg
[~2023-01-27 11:39] MED LIST changes: +AMI200T PO; -AMIO200T62 PO; +DAPA10TA PO; -FERR-119 PO; +INSU100I40 SQ; -METF-1203 PO; +METO50TA7 PO; +ROSU10TA2 PO
[2023-01-27 12:34] LABS: BASOPHILS # (AUTO) 0.1 X10'3 (0-0.2); BASOPHILS % (AUTO) 0.6 % (0-1); EOSINOPHILS % (AUTO) 0.1 % (0-6); HEMATOCRIT 34.1 % (35.0-45.0); HEMOGLOBIN 9.5 g/dl (12.0-16.0); LYMPHOCYTES # (AUTO) 0.6 X10'3 (1.1-4.8); LYMPHOCYTES % (AUTO) 7.3 % (21-51); MEAN CORPUSCULAR HEMOGLOBIN 23.9 PG (27.0-31.0); MEAN CORPUSCULAR HGB CONC 27.9 g/dL (33.0-36.5); MEAN CORPUSCULAR VOLUME 85.9 FL (78-98); MEAN PLATELET VOLUME 8.2 FL (7.4-10.4); MONOCYTES # (AUTO) 0.8 X10'3 (0-0.9); MONOCYTES % (AUTO) 9.7 % (2-12); NEUTROPHILS # (AUTO) 7.2 X10'3 (1.8-7.7); NEUTROPHILS % (AUTO) 82.3 % (42-75); PLATELET COUNT 344 X10'3 (140-440); RED BLOOD COUNT 3.97 X10'6 (4.20-5.60); RED CELL DISTRIBUTION WIDTH 19.4 % (11.5-14.5); WHITE BLOOD COUNT 8.8 X10'3 (4.5-11.0)
[2023-01-27 12:35] LABS: ALANINE AMINOTRANSFERASE 15 U/L (12-78); ALBUMIN 3.6 G/DL (3.4-5.0); ALKALINE PHOSPHATASE 100 IU/L (46-116); ANION GAP 15 (8-16); ASPARTATE AMINO TRANSFERASE 28 U/L (10-37); BILIRUBIN,TOTAL 0.8 MG/DL (0.1-1.0); BLOOD UREA NITROGEN 29 MG/DL (7-18); BUN/CREATININE RATIO 13.9 (10.0-20.0); CALCIUM 9.7 MG/DL (8.5-10.1); CHLORIDE 107 MMOL/L (99-107); CREATININE 2.09 MG/DL (0.40-0.90); GLUCOSE 188 MG/DL (70-104); POTASSIUM 3.1 MMOL/L (3.5-5.1); PRO BRAIN NATRIURETIC PEPTIDE 23583 PG/ML (0-125); SODIUM 142 MMOL/L (135-145); TOTAL CARBON DIOXIDE 19.7 MMOL/L (24-32); TOTAL PROTEIN 7.2 G/DL (6.4-8.2); eCRCL 17 ML/MIN; eGFR 23 ML/MIN
[2023-01-27 13:10] LABS: ANISOCYTOSIS 2+; HYPOCHROMASIA 2+; PLATELET ESTIMATE NORMAL; POLYCHROMASIA FEW
[2023-01-27 13:11] LABS: ACANTHOCYTES FEW; BURR CELLS FEW; ELLIPTOCYTES FEW; SPHEROCYTES FEW; TEAR DROP CELLS FEW
[2023-01-27] MEDS ORDERED: potassium Cl 20 mEq SR tablet PO STA (16:06)
[2023-01-27] MEDS ORDERED: nitroGLYCERIN 1gm ointment UD TP ONE (16:10)
--- NOTE | 2023-01-27 18:35 | NUR ---
Patient sbp 110. Pt states chest pain has resolved. Nitrobid held at this time. aware.
[2023-01-27] MEDS ORDERED: furosemide 10 MG/1 ML 10ml inj IV ONE (18:40)
[2023-01-27] MEDS ORDERED: CefTRIAXone/D5W-Rocephin 1gm 50 ML IV ONE (18:40)
[2023-01-27] MEDS ORDERED: azithromycin/NS 500mg/250ml 250 ML IV ONE (19:25)
[2023-01-27] MEDS ORDERED: SEMA0.258 SQ (19:57)
[2023-01-28] MEDS ORDERED: ondansetron/PF 4mg/2ml inj IV PRN (02:35)
[2023-01-28] MEDS ORDERED: diphenhydrAMINE 50 mg/ml inj IV PRN (02:35)
[2023-01-28] MEDS ORDERED: magnesium hydroxide 30ml (MOM) UD suspension PO PRN (02:35)
[2023-01-28] MEDS ORDERED: mag hydrox/Alum hydrox/simeth 30ml oral suspension PO PRN (02:35)
[2023-01-28] MEDS ORDERED: bisacodyl 10mg suppository rectal RC PRN (02:35)
[2023-01-28] MEDS ORDERED: HYDROcodone/acetaminophen 5mg/325mg tablet PO PRN ×2 (02:35→19:25)
[2023-01-28] MEDS ORDERED: ondansetron 4mg rapidly disintigrating tab PO PRN (02:35)
[2023-01-28] MEDS ORDERED: potassium Cl 20 mEq SR tablet PO PRN (02:35)
[2023-01-28] MEDS ORDERED: acetaminophen 650mg rectal suppository RC PRN (02:35)
[2023-01-28] MEDS ORDERED: potassium Cl 40MEQ/1/2NS 520ml 520 ML IV PRN (02:35)
[2023-01-28] MEDS ORDERED: morphine 2 MG/ML inj. syringe IV PRN ×2 (02:35→19:25)
[2023-01-28] MEDS ORDERED: diphenhydrAMINE 25mg capsule PO PRN (02:35)
[2023-01-28] MEDS ORDERED: acetaminophen 325mg tablet PO PRN ×2 (02:35)
[2023-01-28] MEDS ORDERED: MESSAGE TO PHARMACY PO ONE (02:40)
[2023-01-28] MEDS ORDERED: dextrose 50%-water 50ml dispensing syringe IV PRN ×2 (02:40)
[2023-01-28] MEDS ORDERED: insulin Lispro (HumaLOG) vial - multi-dose SQ SCH (02:40)
[2023-01-28] MEDS ORDERED: DEXTROSE 15 GM of carb/4 tabs (each vial/BOTTLE has 4 tablets) PO PRN ×2 (02:40)
[2023-01-28] MEDS ORDERED: glucagon, human recombinant 1mg kit SUBCUT PRN (02:40)
[2023-01-28] MEDS: normal saline 1000ml 1,000 ML IV SCH (02:57)
[2023-01-28 03:20] LABS: APTT 32 SECONDS (22-32); INR 1.3 INR; PROTHROMBIN TIME 13.6 SECONDS (9.0-12.0)
[2023-01-28 03:23] LABS: MAGNESIUM 1.9 MG/DL (1.5-2.4); PHOSPHORUS 3.5 MG/DL (2.3-4.5)
[2023-01-28] MEDS: potassium Cl 20 mEq SR tablet PO PRN ×2 (06:45→11:54)
[2023-01-28] MEDS ORDERED: pantoprazole 40mg Tablet.DR PO SCH (07:30)
[2023-01-28] MEDS ORDERED: furosemide 10 MG/1 ML 10ml inj IV SCH (08:00)
[2023-01-28] MEDS ORDERED: docusate sod 100mg capsule PO SCH (08:00)
[2023-01-28] MEDS: K and/or MAG REPLACEMENT MC SCH (08:00)
[2023-01-28] MEDS ORDERED: azithromycin/NS 500mg/250ml 250 ML IV SCH (08:00)
[2023-01-28] MEDS ORDERED: piperacillin/tazo 3.375gm/50ml 50 ML IV SCH (08:00)
[2023-01-28] MEDS ORDERED: levoFLOXACIN-Levaquin 500mg/D5 100 ML IV SCH (08:00)
[2023-01-28 10:00] LABS: HEMOGLOBIN A1C 9.4 % (4.5-6.2)
--- NOTE | 2023-01-28 10:56 | NUR ---
Paged Dr. Bauer PAGER ID: [phone] MESSAGE: VIJI Barrios RN [phone]. RE: Eva Maradiaga. Patient BP dropped 73/43 she got Lasix 20 mg IV this am, manual BP check was 80/50. She has CHF and has NS @ 20 ml/hr running. Do you want her to have low dose of NS bolus?
--- NOTE | 2023-01-28 11:19 | NUR ---
Dr. Bauer called me back aware of the low BP. She said she is coming to see the patient. veterinary laboratory technician was paged too to get the echo done emile
[2023-01-28] MEDS ORDERED: normal saline 1000ml 1,000 ML IV SCH (11:35)
--- NOTE | 2023-01-28 11:35 | NUR ---
Dr. Bauer at bedside examining the patient
--- NOTE | 2023-01-28 13:13 | NUR ---
BP after 250 ml NS bolus was 91/38 - Dr. Bauer aware. She wanted Lasix on hold for now and to wait how patient does tomorrow morning
--- NOTE | 2023-01-28 14:02 | NUR ---
Called pharmacy to request for humalog later and pedro for leelee
--- NOTE | 2023-01-28 17:47 | NUR ---
Patient's blood sugar this afternoon was 66mg/dl, she said she was hungry. Dinner tray served
--- NOTE | 2023-01-28 19:10 | NUR ---
Report received noted at 1845 pt. had very low blood pressure, 78/47, HR 77, 98 RA, no SOB, no s/s, HOB lowered no SOB, BP to 67/35, call to hospitalists, Dr. Blanchard responded at 1900, stated he is aware and will put in orders. No CP, no SOB, checked with manual BP which did not produce palpable blood pressures x3 attempts.
[2023-01-28] MEDS ORDERED: albumin (Human) 5% 250ml 250 ML IV ONE (19:15)
[2023-01-28] MEDS ORDERED: digoxin 250mcg/ml 2ml ampule IV ONE (19:30)
[2023-01-28] MEDS: insulin glargine (Lantus) pen - multi-dose SQ SCH (21:00)
[2023-01-28] MEDS ORDERED: temazepam 15mg capsule PO PRN (21:00)
[2023-01-28] MEDS: apixaban 5mg tablet PO SCH (21:02)
--- NOTE | 2023-01-28 22:30 | NUR ---
Report to report Wilson ALVES assuming care of patient.
--- NOTE | 2023-01-28 23:42 | NUR ---
pt placed onto inpatient bed
--- NOTE | 2023-01-29 00:27 | NUR ---
report called to floor nurse pt tx to room 4022 by tech
[2023-01-29 01:00] VITALS: BP 107/69; PULSE 81; RESP 18; TEMP 97.6; O2SAT 97
[2023-01-29] MEDS: K and/or MAG REPLACEMENT MC SCH ×3 (01:10→20:00)
[2023-01-29 06:00] VITALS: BP 109/60; PULSE 83; RESP 16; TEMP 97.9; O2SAT 97
[2023-01-29 07:20] LABS: BASOPHILS % (AUTO) 0.8 % (0-1); EOSINOPHILS # (AUTO) 0.1 X10'3 (0-0.9); EOSINOPHILS % (AUTO) 2.3 % (0-6); HEMATOCRIT 26.6 % (35.0-45.0); HEMOGLOBIN 8.1 g/dl (12.0-16.0); LYMPHOCYTES % (AUTO) 22.5 % (21-51); MEAN CORPUSCULAR HEMOGLOBIN 24.6 PG (27.0-31.0); MEAN CORPUSCULAR HGB CONC 30.4 g/dL (33.0-36.5); MEAN CORPUSCULAR VOLUME 80.8 FL (78-98); MEAN PLATELET VOLUME 7.7 FL (7.4-10.4); MONOCYTES # (AUTO) 0.6 X10'3 (0-0.9); MONOCYTES % (AUTO) 13.4 % (2-12); NEUTROPHILS # (AUTO) 2.6 X10'3 (1.8-7.7); PLATELET COUNT 289 X10'3 (140-440); RED BLOOD COUNT 3.29 X10'6 (4.20-5.60); RED CELL DISTRIBUTION WIDTH 19.3 % (11.5-14.5); WHITE BLOOD COUNT 4.3 X10'3 (4.5-11.0)
[2023-01-29 07:37] LABS: ALANINE AMINOTRANSFERASE 16 U/L (12-78); ALBUMIN 3.2 G/DL (3.4-5.0); ALKALINE PHOSPHATASE 72 IU/L (46-116); ANION GAP 10 (8-16); ASPARTATE AMINO TRANSFERASE 23 U/L (10-37); BILIRUBIN,TOTAL 0.6 MG/DL (0.1-1.0); BLOOD UREA NITROGEN 23 MG/DL (7-18); BUN/CREATININE RATIO 12.6 (10.0-20.0); CALCIUM 9.3 MG/DL (8.5-10.1); CHLORIDE 107 MMOL/L (99-107); CREATININE 1.83 MG/DL (0.40-0.90); GLUCOSE 143 MG/DL (70-104); MAGNESIUM 1.6 MG/DL (1.5-2.4); POTASSIUM 3.7 MMOL/L (3.5-5.1); SODIUM 142 MMOL/L (135-145); TOTAL CARBON DIOXIDE 24.9 MMOL/L (24-32); TOTAL PROTEIN 6.3 G/DL (6.4-8.2); eCRCL 19 ML/MIN; eGFR 27 ML/MIN
[2023-01-29] MEDS: lisinopril 2.5mg tablet PO SCH (08:00)
[2023-01-29] MEDS ORDERED: metoprolol succinate 25mg (24-HOUR) SR. Tablet PO SCH (08:00)
[2023-01-29] MEDS ORDERED: BISOPROLOL FUMARATE PO SCH (08:00)
[2023-01-29] MEDS ORDERED: atorvastatin 20mg tablet PO SCH ×2 (08:00→21:00)
[2023-01-29] MEDS: normal saline 1000ml 1,000 ML IV SCH ×2 (08:43→20:39)
[2023-01-29] MEDS: ezetimibe 10mg tablet PO SCH (09:10)
[2023-01-29] MEDS: apixaban 5mg tablet PO SCH ×2 (09:10→20:39)
--- NOTE | 2023-01-29 14:08 | NUR ---
DM Consult: Pt hx T2DM A1C 9.4% this admit up from prior 7.6% previously 06/30/20 per EMR. Pt/SO seen by RD at bedside for written/verbal DM diet ed w/ RD contact information provided. 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 Pt reports checks Glu/sees PCP routinely, takes meds per Rx, and was agreeable to nutrition review by RD but no concerns at this time. Pt did report short on Eliquis supply at home-CM notified. Written DM diet ed w/ RD contact information left at bedside; RD encourage pt/SO to contact dietitian's office if further nutrition questions/concerns. Addendum: 01/29/23 at [address] Amended: Links added.
--- NOTE | 2023-01-29 17:39 | NUR ---
Student documentation: I have reviewed all interventions, assessments performed and documented by Yue PAULINO of [facility]. Student Medication Administration: For this medication-pass time frame, all medication were reviewed, dispensed, administered and documented per hospital policy by Yue PAULINO of [facility].
[2023-01-29 18:00] VITALS: BP_SYST 91; BP_SYST 94; BP_DIAS 40; BP_DIAS 52; PULSE 68; PULSE 73; RESP 15; RESP 18; TEMP 97.9; TEMP 98.1; O2SAT 96
[2023-01-29] MEDS: insulin glargine (Lantus) pen - multi-dose SQ SCH (21:16)
[2023-01-29 22:00] VITALS: BP 94/52; PULSE 73; RESP 15; TEMP 98.1; O2SAT 96
[2023-01-30 06:00] VITALS: BP 97/61; PULSE 69; RESP 15; TEMP 97.8; O2SAT 95
[2023-01-30 06:46] LABS: EOSINOPHILS # (AUTO) 0.2 X10'3 (0-0.9); EOSINOPHILS % (AUTO) 4.2 % (0-6); HEMATOCRIT 26.9 % (35.0-45.0); HEMOGLOBIN 8.3 g/dl (12.0-16.0); LYMPHOCYTES # (AUTO) 1.6 X10'3 (1.1-4.8); LYMPHOCYTES % (AUTO) 33.2 % (21-51); MEAN CORPUSCULAR HGB CONC 30.7 g/dL (33.0-36.5); MEAN CORPUSCULAR VOLUME 81.5 FL (78-98); MEAN PLATELET VOLUME 7.8 FL (7.4-10.4); MONOCYTES # (AUTO) 0.7 X10'3 (0-0.9); NEUTROPHILS # (AUTO) 2.4 X10'3 (1.8-7.7); NEUTROPHILS % (AUTO) 47.6 % (42-75); PLATELET COUNT 293 X10'3 (140-440); RED CELL DISTRIBUTION WIDTH 19.3 % (11.5-14.5)
--- NOTE | 2023-01-30 06:51 | NUR ---
reported to days. noted pt resting. up to BS. watching lung sounds for sxs overload since lasix on hold. notified RN to watch H/H levels as well. Addendum: 01/30/23 at 0655 by Magdalena Fonscea RN noted pt family bringing in diabetic medication - may not be safe to give with lantus on board.
[2023-01-30 07:06] LABS: ALANINE AMINOTRANSFERASE 18 U/L (12-78); ALBUMIN 3.1 G/DL (3.4-5.0); ALKALINE PHOSPHATASE 71 IU/L (46-116); ANION GAP 8 (8-16); ASPARTATE AMINO TRANSFERASE 20 U/L (10-37); BILIRUBIN,TOTAL 0.5 MG/DL (0.1-1.0); BLOOD UREA NITROGEN 21 MG/DL (7-18); BUN/CREATININE RATIO 12.4 (10.0-20.0); CALCIUM 9.4 MG/DL (8.5-10.1); CHLORIDE 108 MMOL/L (99-107); CREATININE 1.69 MG/DL (0.40-0.90); GLUCOSE 131 MG/DL (70-104); POTASSIUM 3.6 MMOL/L (3.5-5.1); SODIUM 141 MMOL/L (135-145); TOTAL CARBON DIOXIDE 25.1 MMOL/L (24-32); TOTAL PROTEIN 6.2 G/DL (6.4-8.2); eCRCL 21 ML/MIN; eGFR 30 ML/MIN
[2023-01-30 07:35] VITALS: RESP 20
[2023-01-30] MEDS ORDERED: furosemide 20MG tablet PO SCH (08:00)
[2023-01-30] MEDS ORDERED: metoprolol succinate 25mg (24-HOUR) SR. Tablet PO SCH (08:00)
[2023-01-30] MEDS: lisinopril 2.5mg tablet PO SCH (08:00)
[2023-01-30] MEDS: K and/or MAG REPLACEMENT MC SCH (08:00)
[2023-01-30] MEDS ORDERED: levoFLOXACIN-Levaquin 250mg/D5 50 ML IV SCH (08:00)
[2023-01-30] MEDS: apixaban 5mg tablet PO SCH (09:44)
[2023-01-30] MEDS: ezetimibe 10mg tablet PO SCH (09:44)
[2023-01-30 10:00] VITALS: BP 111/57; PULSE 72; RESP 18; TEMP 97; O2SAT 97
[2023-01-30] MEDS ORDERED: LEVO-65 PO ×2 (12:28)
[2023-01-30] MEDS ORDERED: METO-395 PO ×2 (12:28)
[2023-01-30] MEDS ORDERED: FURO20TA4 PO ×2 (12:28)
[2023-02-13] MEDS ORDERED: METO-384 PO (13:36)
[2023-02-13] MEDS ORDERED: LEVO25TA7 PO (13:36)
[2023-02-13] MEDS ORDERED: LYR25C PO (13:37)
[2023-02-13] MEDS ORDERED: FURO40TA4 PO (13:37)
== END 2023-01-30 15:15 | disposition home health service (06) | DRG 193 ==
LOC: ER 11:39 → ED HOLD 01-28 02:39 → ORTHO 4S 01-29 00:45
PROVIDERS: ADMIT Family Medicine; ATTEND Internal Medicine
DX: J18.9 Pneumonia, unspecified organism (principal); I50.23 Acute on chronic systolic (congestive) heart failure; I13.0 Hypertensive heart and chronic kidney disease with heart failure and stage 1 through stage 4 chronic kidney disease, or unspecified chronic kidney disease; N17.9 Acute kidney failure, unspecified; K57.32 Diverticulitis of large intestine without perforation or abscess without bleeding; N18.30 Chronic kidney disease, stage 3 unspecified; E86.1 Hypovolemia; D64.9 Anemia, unspecified; E11.22 Type 2 diabetes mellitus with diabetic chronic kidney disease; E78.5 Hyperlipidemia, unspecified; I25.10 Atherosclerotic heart disease of native coronary artery without angina pectoris; I48.91 Unspecified atrial fibrillation; Z79.4 Long term (current) use of insulin; Z82.49 Family history of ischemic heart disease and other diseases of the circulatory system; Z79.01 Long term (current) use of anticoagulants; Z83.3 Family history of diabetes mellitus; Z85.118 Personal history of other malignant neoplasm of bronchus and lung; Z85.819 Personal history of malignant neoplasm of unspecified site of lip, oral cavity, and pharynx; Z88.0 Allergy status to penicillin; Z95.0 Presence of cardiac pacemaker; Z95.1 Presence of aortocoronary bypass graft; Z98.84 Bariatric surgery status
CPT/HCPCS: 36415; 71045; 74176; 76856; 80053; 82948; 83036; 83605; 83735; 83880; 84100; 84132; 84484; 85008; 85025; 85610; 85730; 87040; 87081; 93005; 93306; 93976; 97161; 99285; G0378; J0456; J0696; J1160; J1815; J1940; J1956; J7030; P9045

== ENCOUNTER 2023-02-09 08:26 | Outpatient (CLI) | payer MEDICARE ==
[~2023-02-09 08:26] MED LIST changes: -AMI200T PO; -BISO10TA16 PO; -CHOL10002 PO; -DAPA10TA PO; -FLAX SEED OIL PO; +FURO20TA4 PO; -FURO40TA4 PO; +LEVO-65 PO; -LEVO25TA2 PO; +METO-395 PO; -METO50TA7 PO; -NOVLG SQ; -OMEP20CA16 PO; -POTA-192 PO; +SEMA0.258 SQ
[2023-02-09 09:17] LABS: ANION GAP 12 (8-16); APTT 43 SECONDS (22-32); BILIRUBIN,TOTAL 0.5 MG/DL (0.1-1.0); BLOOD UREA NITROGEN 17 MG/DL (7-18); BUN/CREATININE RATIO 10.6 (10.0-20.0); CALCIUM 9.4 MG/DL (8.5-10.1); CHLORIDE 108 MMOL/L (99-107); GLUCOSE 85 MG/DL (70-104); INR 1.4 INR; POTASSIUM 3.6 MMOL/L (3.5-5.1); PROTHROMBIN TIME 14.8 SECONDS (9.0-12.0); SODIUM 143 MMOL/L (135-145); TOTAL CARBON DIOXIDE 23.4 MMOL/L (24-32); TOTAL PROTEIN 6.9 G/DL (6.4-8.2); eGFR 32 ML/MIN
[2023-02-09 09:18] LABS: ALANINE AMINOTRANSFERASE 22 U/L (12-78); ALBUMIN 3.4 G/DL (3.4-5.0); ALKALINE PHOSPHATASE 80 IU/L (46-116); ASPARTATE AMINO TRANSFERASE 36 U/L (10-37)
[2023-02-09 09:23] LABS: HEMATOCRIT 27.6 % (35.0-45.0); HEMOGLOBIN 8.2 g/dl (12.0-16.0); MEAN CORPUSCULAR HEMOGLOBIN 24.4 PG (27.0-31.0); MEAN CORPUSCULAR HGB CONC 29.7 g/dL (33.0-36.5); MONOCYTES # (AUTO) 0.6 X10'3 (0-0.9)
[2023-02-09 09:24] LABS: BASOPHILS # (AUTO) 0.1 X10'3 (0-0.2); BASOPHILS % (AUTO) 1.3 % (0-1); EOSINOPHILS # (AUTO) 0.1 X10'3 (0-0.9); EOSINOPHILS % (AUTO) 2.5 % (0-6); LYMPHOCYTES # (AUTO) 1.2 X10'3 (1.1-4.8); LYMPHOCYTES % (AUTO) 20.2 % (21-51); MEAN PLATELET VOLUME 8.2 FL (7.4-10.4); MONOCYTES % (AUTO) 9.7 % (2-12); NEUTROPHILS % (AUTO) 66.3 % (42-75); PLATELET COUNT 279 X10'3 (140-440); RED BLOOD COUNT 3.37 X10'6 (4.20-5.60); RED CELL DISTRIBUTION WIDTH 19.4 % (11.5-14.5)
[2023-02-09] MEDS ORDERED: iohexol 350MG/ML 100ml bottle IV ONE (09:31)
[2023-02-09 11:16] LABS: ANISOCYTOSIS 2+; ELLIPTOCYTES FEW; PLATELET ESTIMATE NORMAL
[2023-02-09 11:17] LABS: HYPOCHROMASIA 1+
[2023-02-13] MEDS ORDERED: LEVO25TA7 PO (13:36)
[2023-02-13] MEDS ORDERED: METO-384 PO (13:36)
[2023-02-13] MEDS ORDERED: LYR25C PO (13:37)
[2023-02-13] MEDS ORDERED: FURO40TA4 PO (13:37)
== END 2023-02-09 23:59 | disposition home or self-care (01) ==
LOC: RAD 08:26
PROVIDERS: ATTEND Student in an Organized Health Care Education/Training Program
DX: J98.11 Atelectasis (principal); I48.91 Unspecified atrial fibrillation; I48.92 Unspecified atrial flutter; J90 Pleural effusion, not elsewhere classified; R59.0 Localized enlarged lymph nodes; I25.10 Atherosclerotic heart disease of native coronary artery without angina pectoris; I70.0 Atherosclerosis of aorta; M47.814 Spondylosis without myelopathy or radiculopathy, thoracic region
CPT/HCPCS: 36415; 75572; 80053; 85008; 85025; 85610; 85730; J3490; Q9967

== ENCOUNTER 2023-03-27 10:46 | Day surgery (SDC) | payer MEDICARE ==
[2023-03-27] VITALS (11 sets, daily range): BP systolic 92–121; BP diastolic 42–61; PULSE 59–63; RESP 16–17; TEMP 97.2; O2SAT 98–100
[~2023-03-27] VITALS: Ht 149.9 cm; Wt 59.5 kg
[~2023-03-27 10:46] MED LIST changes: -FURO20TA4 PO; +FURO40TA4 PO; -LEVO-65 PO; +LEVO25TA7 PO; +LYR25C PO; +METO-384 PO; -METO-395 PO; -SEMA0.258 SQ
[2023-03-27] MEDS ORDERED: SEMA0.258 SQ (11:07)
[2023-03-27] MEDS ORDERED: MIDAZolam 1mg/ml 10ml vial IV ONE (11:10)
[2023-03-27] MEDS ORDERED: fentaNYL/PF 50MCG/1 ML 2ML syringe IV ONE (11:10)
== END 2023-03-27 14:20 | disposition home or self-care (01) ==
LOC: SSTAY O 10:46
PROVIDERS: ATTEND Student in an Organized Health Care Education/Training Program
DX: Z45.09 Encounter for adjustment and management of other cardiac device (principal); I48.0 Paroxysmal atrial fibrillation; E11.22 Type 2 diabetes mellitus with diabetic chronic kidney disease; I13.0 Hypertensive heart and chronic kidney disease with heart failure and stage 1 through stage 4 chronic kidney disease, or unspecified chronic kidney disease; I50.22 Chronic systolic (congestive) heart failure; N18.9 Chronic kidney disease, unspecified; E78.5 Hyperlipidemia, unspecified; D64.9 Anemia, unspecified; I25.10 Atherosclerotic heart disease of native coronary artery without angina pectoris; I25.2 Old myocardial infarction; Z79.899 Other long term (current) drug therapy; Z79.4 Long term (current) use of insulin; Z95.1 Presence of aortocoronary bypass graft; Z87.891 Personal history of nicotine dependence; Z88.1 Allergy status to other antibiotic agents
CPT/HCPCS: 82948; 93312; 93325; 94760; J2250; J3010; A4620

== ENCOUNTER 2023-11-17 12:05 | Inpatient (IN) | payer MEDICARE ==
[~2023-11-17] VITALS: Ht 149.9 cm; Wt 57.0 kg
[~2023-11-17 12:05] MED LIST changes: +FURO20TA4 PO; -FURO40TA4 PO; -METO-384 PO; +MIDO2.5T14 PO; +SEMA0.258 SQ
[2023-11-17 12:36] LABS: MEAN CORPUSCULAR HGB CONC 32.3 g/dL (33.0-36.5); WHITE BLOOD COUNT 7.6 X10'3 (4.5-11.0)
[2023-11-17 12:38] LABS: BASOPHILS # (AUTO) 0.1 X10'3 (0-0.2); BASOPHILS % (AUTO) 1.2 % (0-1); EOSINOPHILS # (AUTO) 0.1 X10'3 (0-0.9); EOSINOPHILS % (AUTO) 1.3 % (0-6); HEMATOCRIT 36.3 % (35.0-45.0); HEMOGLOBIN 11.7 g/dl (12.0-16.0); LYMPHOCYTES # (AUTO) 1.8 X10'3 (1.1-4.8); LYMPHOCYTES % (AUTO) 23.8 % (21-51); MEAN CORPUSCULAR HEMOGLOBIN 28.8 PG (27.0-31.0); MEAN CORPUSCULAR VOLUME 89.1 FL (78-98); MEAN PLATELET VOLUME 8.7 FL (7.4-10.4); MONOCYTES # (AUTO) 0.8 X10'3 (0-0.9); MONOCYTES % (AUTO) 10.6 % (2-12); NEUTROPHILS # (AUTO) 4.8 X10'3 (1.8-7.7); NEUTROPHILS % (AUTO) 63.1 % (42-75); PLATELET COUNT 344 X10'3 (140-440); RED BLOOD COUNT 4.07 X10'6 (4.20-5.60)
[2023-11-17 13:32] LABS: ALBUMIN 3.7 G/DL (3.4-5.0); ANION GAP 19 (8-16); BLOOD UREA NITROGEN 26 MG/DL (7-18); BUN/CREATININE RATIO 16.1 (10.0-20.0); CALCIUM 9.7 MG/DL (8.5-10.1); CHLORIDE 103 MMOL/L (99-107); CREATININE 1.61 MG/DL (0.40-0.90); GLUCOSE 265 MG/DL (70-104); POTASSIUM 4.5 MMOL/L (3.5-5.1); PRO BRAIN NATRIURETIC PEPTIDE 15942 PG/ML (0-125); SODIUM 139 MMOL/L (135-145); TOTAL CARBON DIOXIDE 16.8 MMOL/L (24-32); eCRCL 28 ML/MIN; eGFR 31 ML/MIN
[2023-11-17] MEDS: normal saline 1000ML IV soln IVB ONE (15:31)
[2023-11-17] MEDS ORDERED: potassium Cl 20 mEq SR tablet PO PRN (18:45)
[2023-11-17] MEDS ORDERED: ondansetron/PF 4mg/2ml inj IV PRN (18:45)
[2023-11-17] MEDS ORDERED: potassium Cl 40MEQ/1/2NS 520ml 520 ML IV PRN (18:45)
[2023-11-17] MEDS ORDERED: morphine 2 MG/ML inj. syringe IV PRN (18:45)
[2023-11-17] MEDS ORDERED: magnesium sulf-water 2g/50mL 50 ML IV PRN (18:45)
[2023-11-17] MEDS ORDERED: magnesium sulf-water 4G/100mL 100 ML IV PRN (18:45)
[2023-11-17 19:50] LABS: BILIRUBIN,URINE NEGATIVE (Neg); CLARITY,URINE CLOUDY (Clear); COLOR,URINE YELLOW (Yellow); GLUCOSE, URINE 500 mg/dl (Neg); KETONES,URINE 15 mg/dl (Neg); LEUKOCYTE ESTERASE ,URINE TRACE (Neg); NITRITES, URINE NEGATIVE (Neg); OCCULT BLOOD,URINE SMALL (Neg); PROTEIN,URINE 100 mg/dl (Neg); UROBILINOGEN,URINE 0.2 E.U/dL (0.2-1.0)
[2023-11-17 19:54] LABS: UA COLLECTION TYPE CLN CATCH MIDSTREAM
[2023-11-17 19:56] LABS: BACTERIA,URINE 4+ /HPF (Neg); SQUAMOUS EPITHELIAL CELL,UR MANY /LPF (FEW); WBC,URINE 50-100 /HPF (0-4)
[2023-11-17] MEDS: K and/or MAG REPLACEMENT MC SCH (20:00)
[2023-11-18 02:58] LABS: BASOPHILS # (AUTO) 0.1 X10'3 (0-0.2); EOSINOPHILS # (AUTO) 0.1 X10'3 (0-0.9); EOSINOPHILS % (AUTO) 0.7 % (0-6); HEMATOCRIT 34.9 % (35.0-45.0); HEMOGLOBIN 11.1 g/dl (12.0-16.0); LYMPHOCYTES # (AUTO) 1.6 X10'3 (1.1-4.8); LYMPHOCYTES % (AUTO) 19.3 % (21-51); MEAN CORPUSCULAR HEMOGLOBIN 28.4 PG (27.0-31.0); MEAN CORPUSCULAR HGB CONC 31.8 g/dL (33.0-36.5); MEAN CORPUSCULAR VOLUME 89.2 FL (78-98); MEAN PLATELET VOLUME 8.7 FL (7.4-10.4); MONOCYTES % (AUTO) 12.1 % (2-12); NEUTROPHILS # (AUTO) 5.7 X10'3 (1.8-7.7); NEUTROPHILS % (AUTO) 66.9 % (42-75); PLATELET COUNT 323 X10'3 (140-440); RED BLOOD COUNT 3.91 X10'6 (4.20-5.60); RED CELL DISTRIBUTION WIDTH 16.1 % (11.5-14.5); WHITE BLOOD COUNT 8.5 X10'3 (4.5-11.0)
[2023-11-18 03:12] LABS: ALBUMIN 3.6 G/DL (3.4-5.0); ANION GAP 19 (8-16); BLOOD UREA NITROGEN 23 MG/DL (7-18); CALCIUM 9.5 MG/DL (8.5-10.1); CHLORIDE 104 MMOL/L (99-107); CREATININE 1.35 MG/DL (0.40-0.90); GLUCOSE 201 MG/DL (70-104); MAGNESIUM 1.8 MG/DL (1.5-2.4); POTASSIUM 3.9 MMOL/L (3.5-5.1); SODIUM 139 MMOL/L (135-145); TOTAL CARBON DIOXIDE 16.5 MMOL/L (24-32); eCRCL 34 ML/MIN; eGFR 39 ML/MIN
[2023-11-18] MEDS ORDERED: INSU100V11 SQ (13:06)
[2023-11-18 13:39] VITALS: BP 127/81; PULSE 76; RESP 16; TEMP 97.7; O2SAT 100
[2023-11-18] MEDS: pneumococcal 23-VAL P-sac vacc 25 mcg/0.5ml vial IMVAC ONE (14:38)
[2023-11-18 17:12] VITALS: BP 117/61; PULSE 89; RESP 16; TEMP 97; O2SAT 96
[2023-11-18] MEDS ORDERED: dextrose 50%-water 50ml dispensing syringe IV PRN ×2 (17:35)
[2023-11-18] MEDS ORDERED: glucagon, human recombinant 1mg kit SUBCUT PRN (17:35)
[2023-11-18] MEDS ORDERED: DEXTROSE 15 GM of carb/4 tabs (each vial/BOTTLE has 4 tablets) PO PRN ×2 (17:35)
[2023-11-18] MEDS: PERFLUTREN PROTEIN-A MICROSPHR (Optison) 0.22 MG/ML 3ML VIAL IV ONE (17:50)
[2023-11-18] MEDS: furosemide 40mg/4ml inj IV SCH (18:03)
[2023-11-18] MEDS: metoprolol tartrate 12.5mg (1/2 tablet) PO SCH (18:03)
[2023-11-18 19:30] VITALS: BP 109/67; PULSE 75; RESP 18; TEMP 97.7; O2SAT 95
[2023-11-18] MEDS: acetaminophen 325mg tablet PO PRN (21:58)
[2023-11-18 22:00] VITALS: BP 113/65; PULSE 85; RESP 18; TEMP 98; O2SAT 95
[2023-11-18] MEDS: INSULIN LISPRO 100 UNIT/ML INSULN.PEN MULTI-DOSE SQ SCH (22:00)
[2023-11-19] VITALS (8 sets, daily range): BP systolic 90–130; BP diastolic 49–75; PULSE 74–86; RESP 16–22; TEMP 96.1–98.2; O2SAT 92–98
[2023-11-19 05:45] LABS: BASOPHILS # (AUTO) 0.1 X10'3 (0-0.2); BASOPHILS % (AUTO) 1.5 % (0-1); EOSINOPHILS # (AUTO) 0.2 X10'3 (0-0.9); EOSINOPHILS % (AUTO) 2.6 % (0-6); HEMATOCRIT 35.8 % (35.0-45.0); HEMOGLOBIN 11.6 g/dl (12.0-16.0); LYMPHOCYTES # (AUTO) 2.3 X10'3 (1.1-4.8); LYMPHOCYTES % (AUTO) 31.8 % (21-51); MEAN CORPUSCULAR HEMOGLOBIN 28.2 PG (27.0-31.0); MEAN CORPUSCULAR HGB CONC 32.2 g/dL (33.0-36.5); MEAN CORPUSCULAR VOLUME 87.4 FL (78-98); MEAN PLATELET VOLUME 8.5 FL (7.4-10.4); MONOCYTES # (AUTO) 0.9 X10'3 (0-0.9); MONOCYTES % (AUTO) 12.8 % (2-12); NEUTROPHILS # (AUTO) 3.7 X10'3 (1.8-7.7); NEUTROPHILS % (AUTO) 51.3 % (42-75); PLATELET COUNT 340 X10'3 (140-440); RED CELL DISTRIBUTION WIDTH 16.4 % (11.5-14.5); WHITE BLOOD COUNT 7.2 X10'3 (4.5-11.0)
[2023-11-19 05:53] LABS: ALBUMIN 3.3 G/DL (3.4-5.0); ANION GAP 13 (8-16); BLOOD UREA NITROGEN 31 MG/DL (7-18); BUN/CREATININE RATIO 19.7 (10.0-20.0); CALCIUM 9.5 MG/DL (8.5-10.1); CHLORIDE 103 MMOL/L (99-107); CREATININE 1.57 MG/DL (0.40-0.90); GLUCOSE 143 MG/DL (70-104); MAGNESIUM 1.6 MG/DL (1.5-2.4); POTASSIUM 3.3 MMOL/L (3.5-5.1); SODIUM 138 MMOL/L (135-145); TOTAL CARBON DIOXIDE 22.5 MMOL/L (24-32); eCRCL 22 ML/MIN; eGFR 32 ML/MIN
[2023-11-19] MEDS: levoTHYROXINE 25mcg tablet PO SCH (08:04)
[2023-11-19] MEDS: atorvastatin 20mg tablet PO SCH (08:05)
[2023-11-19] MEDS: ezetimibe 10mg tablet PO SCH (08:05)
[2023-11-19] MEDS: aspirin 81mg, enteric-coated 1 TAB TABLET.DR PO SCH (08:05)
[2023-11-19] MEDS: pregabalin 25mg capsule PO SCH (08:05)
[2023-11-19] MEDS: potassium Cl 20 mEq SR tablet PO PRN (08:06)
[2023-11-19] MEDS: losartan 50mg tablet PO ONE (11:02)
[2023-11-20] VITALS (9 sets, daily range): BP systolic 85–115; BP diastolic 31–81; PULSE 70–82; RESP 14–22; TEMP 97.6–98.7; O2SAT 95–97
[2023-11-20 07:41] LABS: BASOPHILS # (AUTO) 0.1 X10'3 (0-0.2); BASOPHILS % (AUTO) 1.1 % (0-1); EOSINOPHILS # (AUTO) 0.2 X10'3 (0-0.9); EOSINOPHILS % (AUTO) 2.9 % (0-6); HEMATOCRIT 35.1 % (35.0-45.0); HEMOGLOBIN 11.2 g/dl (12.0-16.0); LYMPHOCYTES # (AUTO) 1.5 X10'3 (1.1-4.8); LYMPHOCYTES % (AUTO) 24.6 % (21-51); MEAN CORPUSCULAR HEMOGLOBIN 28.2 PG (27.0-31.0); MEAN CORPUSCULAR HGB CONC 31.9 g/dL (33.0-36.5); MEAN CORPUSCULAR VOLUME 88.3 FL (78-98); MEAN PLATELET VOLUME 8.6 FL (7.4-10.4); MONOCYTES # (AUTO) 0.8 X10'3 (0-0.9); MONOCYTES % (AUTO) 12.8 % (2-12); NEUTROPHILS # (AUTO) 3.6 X10'3 (1.8-7.7); NEUTROPHILS % (AUTO) 58.6 % (42-75); PLATELET COUNT 324 X10'3 (140-440); RED BLOOD COUNT 3.98 X10'6 (4.20-5.60); RED CELL DISTRIBUTION WIDTH 16.3 % (11.5-14.5); WHITE BLOOD COUNT 6.2 X10'3 (4.5-11.0)
[2023-11-20 07:55] LABS: ALBUMIN 3.1 G/DL (3.4-5.0); ANION GAP 12 (8-16); BLOOD UREA NITROGEN 39 MG/DL (7-18); BUN/CREATININE RATIO 23.2 (10.0-20.0); CALCIUM 9.5 MG/DL (8.5-10.1); CHLORIDE 103 MMOL/L (99-107); CREATININE 1.68 MG/DL (0.40-0.90); GLUCOSE 180 MG/DL (70-104); MAGNESIUM 1.3 MG/DL (1.5-2.4); POTASSIUM 3.9 MMOL/L (3.5-5.1); SODIUM 138 MMOL/L (135-145); TOTAL CARBON DIOXIDE 23.1 MMOL/L (24-32); eCRCL 21 ML/MIN; eGFR 30 ML/MIN
[2023-11-20] MEDS ORDERED: furosemide 20 MG/2 ML vial IV SCH (08:00)
[2023-11-20] MEDS ORDERED: losartan 50mg tablet PO SCH (08:00)
[2023-11-20] MEDS: magnesium Cl slow-release 64mg tablet PO PRN ×2 (08:32→20:54)
[2023-11-20] MEDS: furosemide 20MG tablet PO SCH (10:25)
[2023-11-20] MEDS ORDERED: potassium Cl 20 mEq SR tablet PO PRN ×2 (20:40)
[2023-11-20] MEDS ORDERED: magnesium sulf-water 4G/100mL 100 ML IV PRN (20:40)
[2023-11-20] MEDS ORDERED: potassium Cl 40MEQ/1/2NS 520ml 520 ML IV PRN (20:40)
[2023-11-20] MEDS ORDERED: magnesium sulf-water 2g/50mL 50 ML IV PRN (20:40)
[2023-11-20] MEDS: carVEDilol 3.125mg tablet PO SCH (20:54)
[2023-11-21 02:00] VITALS: BP 140/65; PULSE 78; RESP 14; TEMP 98.3; O2SAT 94
[2023-11-21 06:00] LABS: BASOPHILS % (AUTO) 0.8 % (0-1); EOSINOPHILS # (AUTO) 0.1 X10'3 (0-0.9); EOSINOPHILS % (AUTO) 2.2 % (0-6); HEMOGLOBIN 10.8 g/dl (12.0-16.0); LYMPHOCYTES # (AUTO) 1.5 X10'3 (1.1-4.8); LYMPHOCYTES % (AUTO) 24.8 % (21-51); MEAN CORPUSCULAR HGB CONC 31.6 g/dL (33.0-36.5); MEAN CORPUSCULAR VOLUME 88.4 FL (78-98); MEAN PLATELET VOLUME 8.1 FL (7.4-10.4); MONOCYTES # (AUTO) 0.8 X10'3 (0-0.9); NEUTROPHILS # (AUTO) 3.5 X10'3 (1.8-7.7); NEUTROPHILS % (AUTO) 58.2 % (42-75); PLATELET COUNT 314 X10'3 (140-440); RED BLOOD COUNT 3.84 X10'6 (4.20-5.60); WHITE BLOOD COUNT 5.9 X10'3 (4.5-11.0)
[2023-11-21 06:21] LABS: ANION GAP 11 (8-16); BLOOD UREA NITROGEN 39 MG/DL (7-18); CALCIUM 9.2 MG/DL (8.5-10.1); CHLORIDE 100 MMOL/L (99-107); GLUCOSE 268 MG/DL (70-104); MAGNESIUM 1.5 MG/DL (1.5-2.4); POTASSIUM 3.6 MMOL/L (3.5-5.1); SODIUM 134 MMOL/L (135-145); THYROID STIMULATING HORMONE 0.82 ulU/ml (0.34-4.50); TOTAL CARBON DIOXIDE 22.7 MMOL/L (24-32); eCRCL 23 ML/MIN; eGFR 34 ML/MIN
[2023-11-21 08:00] VITALS: RESP 16; O2SAT 95
[2023-11-21] MEDS: K and/or MAG REPLACEMENT MC SCH (08:00)
[2023-11-21] MEDS ORDERED: COR3.125T PO (11:43)
== END 2023-11-21 15:36 | disposition home or self-care (01) | DRG 291 ==
LOC: ER 12:06 → ED HOLD 18:45 → PCU 3S 11-18 13:31
PROVIDERS: ADMIT Internal Medicine; ATTEND Internal Medicine
DX: I13.0 Hypertensive heart and chronic kidney disease with heart failure and stage 1 through stage 4 chronic kidney disease, or unspecified chronic kidney disease (principal); I50.23 Acute on chronic systolic (congestive) heart failure; N17.0 Acute kidney failure with tubular necrosis; E87.20 Acidosis, unspecified; E78.00 Pure hypercholesterolemia, unspecified; I25.10 Atherosclerotic heart disease of native coronary artery without angina pectoris; E03.9 Hypothyroidism, unspecified; I08.1 Rheumatic disorders of both mitral and tricuspid valves; I48.91 Unspecified atrial fibrillation; E11.22 Type 2 diabetes mellitus with diabetic chronic kidney disease; E11.42 Type 2 diabetes mellitus with diabetic polyneuropathy; N18.9 Chronic kidney disease, unspecified; Z98.84 Bariatric surgery status; Z88.0 Allergy status to penicillin; Z95.1 Presence of aortocoronary bypass graft; Z95.810 Presence of automatic (implantable) cardiac defibrillator; Z79.4 Long term (current) use of insulin; Z79.899 Other long term (current) drug therapy; Z83.3 Family history of diabetes mellitus; Z82.49 Family history of ischemic heart disease and other diseases of the circulatory system
CPT/HCPCS: 36415; 71045; 80048; 81001; 82948; 83605; 83735; 83880; 84145; 84443; 84484; 85025; 87081; 90732; 93005; 93306; 97110; 97116; 97161; 97530; 99285; G0378; J1815; J1940; J7030

== ENCOUNTER 2024-04-01 03:53 | Inpatient (IN) | payer MEDICARE ==
[~2024-04-01] VITALS: Ht 149.9 cm; Wt 63.8 kg
[2024-04-01] VITALS (9 sets, daily range): BP systolic 94–110; BP diastolic 44–68; PULSE 75–111; RESP 12–32; TEMP 97.3–98; O2SAT 94–100
[~2024-04-01 03:53] MED LIST changes: -APIX5TAB3 PO; +ASPI-1071 PO; +EMPA10TA PO; -FURO20TA4 PO; -INSU100I40 SQ; +INSU100V11 SQ; -LISI2.5T14 PO; -LYR25C PO; +METO-395 PO; -MIDO2.5T14 PO; -SEMA0.258 SQ
[2024-04-01 04:15] LABS: BASOPHILS # (AUTO) 0.1 X10'3 (0-0.2); BASOPHILS % (AUTO) 1.3 % (0-1); EOSINOPHILS # (AUTO) 0.1 X10'3 (0-0.9); EOSINOPHILS % (AUTO) 0.9 % (0-6); LYMPHOCYTES % (AUTO) 11.9 % (21-51); MEAN PLATELET VOLUME 7.8 FL (7.4-10.4); MONOCYTES # (AUTO) 0.9 X10'3 (0-0.9); MONOCYTES % (AUTO) 11.1 % (2-12); NEUTROPHILS % (AUTO) 74.8 % (42-75); PLATELET COUNT 307 X10'3 (140-440); WHITE BLOOD COUNT 8.1 X10'3 (4.5-11.0)
[2024-04-01] MEDS: diltiazem-NS 100mg/100ml 100 ML IV SCH (04:20)
[2024-04-01] MEDS: diltiazem 5mg/ml 5ml inj. IV ONE ×2 (04:20→07:22)
[2024-04-01] MEDS: magnesium sulf-water 2g/50mL 50 ML IV ONE (04:33)
[2024-04-01] MEDS: normal saline 500ml IV soln 500 ML IV ONE (04:38)
[2024-04-01 04:41] LABS: HEMATOCRIT 37.3 % (35.0-45.0); HEMOGLOBIN 11.8 g/dl (12.0-16.0); MEAN CORPUSCULAR VOLUME 77.2 FL (78-98); RED BLOOD COUNT 4.83 X10'6 (4.20-5.60)
[2024-04-01 04:42] LABS: MEAN CORPUSCULAR HEMOGLOBIN 24.5 PG (27.0-31.0); MEAN CORPUSCULAR HGB CONC 31.7 g/dL (33.0-36.5); RED CELL DISTRIBUTION WIDTH 24.2 % (11.5-14.5)
[2024-04-01 04:44] LABS: ALANINE AMINOTRANSFERASE 13 U/L (12-78); ALBUMIN 3.7 G/DL (3.4-5.0); ALBUMIN/GLOBULIN RATIO 0.9 (1.1-1.5); ALKALINE PHOSPHATASE 131 IU/L (46-116); ANION GAP 15 (8-16); ASPARTATE AMINO TRANSFERASE 39 U/L (10-37); BILIRUBIN,TOTAL 1.7 MG/DL (0.1-1.0); BLOOD UREA NITROGEN 25 MG/DL (7-18); BUN/CREATININE RATIO 18.4 (10.0-20.0); CALCIUM 9.6 MG/DL (8.5-10.1); CHLORIDE 101 MMOL/L (99-107); CREATININE 1.36 MG/DL (0.40-0.90); GLUCOSE 159 MG/DL (70-104); SODIUM 142 MMOL/L (135-145); TOTAL CARBON DIOXIDE 26.2 MMOL/L (24-32); TOTAL PROTEIN 7.7 G/DL (6.4-8.2); eCRCL 26 ML/MIN; eGFR 38 ML/MIN
[2024-04-01] MEDS ORDERED: amiodarone 50MG/ML inj IV ONE (04:45)
[2024-04-01 04:51] LABS: PRO BRAIN NATRIURETIC PEPTIDE 17699 PG/ML (0-125)
[2024-04-01] MEDS: ondansetron/PF 4mg/2ml inj IV ONE (04:51)
[2024-04-01 04:52] LABS: ANISOCYTOSIS 2+; MICROCYTOSIS 1+; PLATELET ESTIMATE NORMAL; POIKILOCYTOSIS 1+
[2024-04-01 04:54] LABS: POTASSIUM 4.1 MMOL/L (3.5-5.1)
[2024-04-01] MEDS: amiodarone 150mg/dext, iso-os 100 ML IV ONE (04:59)
[2024-04-01] MEDS: LORazepam 2 mg/ml vial IV ONE (05:05)
[2024-04-01] MEDS: furosemide 10 MG/1 ML 10ml inj IV ONE ×2 (05:08→06:30)
[2024-04-01] MEDS: amiodarone/D5 360MG/200ML BAG 200 ML IV SCH (06:15)
[2024-04-01] MEDS ORDERED: FURO40TA4 PO (06:56)
[2024-04-01] MEDS ORDERED: POTA-207 PO (06:56)
[2024-04-01] MEDS ORDERED: magnesium Cl slow-release 64mg tablet PO PRN (07:25)
[2024-04-01] MEDS ORDERED: magnesium sulf-water 2g/50mL 50 ML IV PRN (07:25)
[2024-04-01] MEDS ORDERED: magnesium hydroxide 30ml (MOM) UD suspension PO PRN ×2 (07:25→07:30)
[2024-04-01] MEDS ORDERED: bisacodyl 10mg suppository rectal RC PRN (07:25)
[2024-04-01] MEDS ORDERED: mag hydrox/Alum hydrox/simeth 30ml oral suspension PO PRN ×2 (07:25→07:30)
[2024-04-01] MEDS ORDERED: acetaminophen 325mg tablet PO PRN ×3 (07:25→07:30)
[2024-04-01] MEDS ORDERED: potassium Cl 20 mEq SR tablet PO PRN (07:25)
[2024-04-01] MEDS ORDERED: magnesium sulf-water 4G/100mL 100 ML IV PRN (07:25)
[2024-04-01] MEDS ORDERED: morphine 2 MG/ML inj. syringe IV PRN ×3 (07:25→07:30)
[2024-04-01] MEDS ORDERED: HYDROcodone/acetaminophen 5mg/325mg tablet PO PRN ×2 (07:25→07:30)
[2024-04-01] MEDS ORDERED: ondansetron/PF 4mg/2ml inj IV PRN (07:30)
[2024-04-01] MEDS: levoTHYROXINE 25mcg tablet PO SCH (07:37)
[2024-04-01] MEDS: enoxaparin 40mg/0.4ml syringe SUBCUT SCH (08:00)
[2024-04-01] MEDS ORDERED: non-formulary drug (Rosuvastatin Calcium* (Crestor*) 1 TAB) PO SCH (08:00)
[2024-04-01] MEDS ORDERED: docusate sod 100mg capsule PO SCH (08:00)
[2024-04-01] MEDS: docusate sod 100mg capsule PO SCH (08:00)
[2024-04-01] MEDS: metoprolol succinate 25mg (24-HOUR) SR. Tablet PO SCH (08:00)
[2024-04-01 08:02] LABS: MAGNESIUM 1.9 MG/DL (1.5-2.4)
[2024-04-01 08:09] LABS: APTT 31 SECONDS (22-32); INR 1.3 INR; PROTHROMBIN TIME 13.5 SECONDS (9.0-12.0)
[2024-04-01] MEDS ORDERED: DEXTROSE 15 GM of carb/4 tabs (each vial/BOTTLE has 4 tablets) PO PRN ×2 (08:10)
[2024-04-01] MEDS ORDERED: dextrose 50%-water 50ml dispensing syringe IV PRN ×2 (08:10)
[2024-04-01] MEDS: aspirin 81mg, enteric-coated 1 TAB TABLET.DR PO SCH (09:05)
[2024-04-01] MEDS: ezetimibe 10mg tablet PO SCH (09:06)
[2024-04-01] MEDS: atorvastatin 20mg tablet PO SCH (09:06)
[2024-04-01] MEDS: EMPAGLIFLOZIN 10 MG TABLET PO SCH (09:07)
[2024-04-01] MEDS: heparin, porcine 5000 units/ml vial SQ SCH (09:08)
[2024-04-01] MEDS: CefTRIAXone/D5W-Rocephin 1gm 50 ML IV SCH (09:08)
[2024-04-01 09:38] LABS: BILIRUBIN,URINE NEGATIVE (Neg); CLARITY,URINE SLIGHTLY CLOUDY (Clear); COLOR,URINE YELLOW (Yellow); GLUCOSE, URINE >=1000 mg/dl (Neg); KETONES,URINE NEGATIVE (Neg); LEUKOCYTE ESTERASE ,URINE NEGATIVE (Neg); NITRITES, URINE NEGATIVE (Neg); OCCULT BLOOD,URINE NEGATIVE (Neg); PH,URINE 5.5 (4.8-8.0); PROTEIN,URINE NEGATIVE (Neg); UROBILINOGEN,URINE 0.2 E.U/dL (0.2-1.0)
[2024-04-01 09:43] LABS: BACTERIA,URINE 4+ /HPF (Neg); SQUAMOUS EPITHELIAL CELL,UR FEW /LPF (FEW); UA COLLECTION TYPE CLN CATCH MIDSTREAM
[2024-04-01 09:44] LABS: RBC,URINE 0-2 /HPF (0-2)
[2024-04-01] MEDS: diltiazem 30mg tablet PO SCH (09:55)
[2024-04-01] MEDS: ondansetron/PF 4mg/2ml inj IV PRN (10:48)
[2024-04-01] MEDS: diltiazem 30mg tablet PO ONE (11:13)
[2024-04-01] MEDS: INSULIN LISPRO 100 UNIT/ML INSULN.PEN MULTI-DOSE SQ SCH (13:15)
[2024-04-01] MEDS: ceFAZolin/D5W- 1GM premix 50 ML IV SCH (13:54)
[2024-04-01] MEDS: furosemide 10 MG/1 ML 10ml inj IV SCH (13:55)
[2024-04-01] MEDS ORDERED: diltiazem 30mg tablet PO SCH (14:00)
[2024-04-01] MEDS ORDERED: furosemide 20 MG/2 ML vial IV SCH (20:00)
[2024-04-01] MEDS: methylPREDNISolone sod succ/PF 40mg inj. IV SCH (20:56)
[2024-04-01] MEDS: insulin glargine (Lantus) pen - multi-dose SQ SCH (21:20)
[2024-04-02] VITALS (8 sets, daily range): BP systolic 97–136; BP diastolic 48–87; PULSE 68–94; RESP 16–22; TEMP 97.4–98.3; O2SAT 94–99
[2024-04-02 07:56] LABS: ALANINE AMINOTRANSFERASE 9 U/L (12-78); ALBUMIN 3.2 G/DL (3.4-5.0); ALBUMIN/GLOBULIN RATIO 0.8 (1.1-1.5); ALKALINE PHOSPHATASE 113 IU/L (46-116); ANION GAP 12 (8-16); ASPARTATE AMINO TRANSFERASE 22 U/L (10-37); BILIRUBIN,TOTAL 1.3 MG/DL (0.1-1.0); BLOOD UREA NITROGEN 27 MG/DL (7-18); BUN/CREATININE RATIO 17.6 (10.0-20.0); CALCIUM 9.1 MG/DL (8.5-10.1); CHLORIDE 101 MMOL/L (99-107); CREATININE 1.53 MG/DL (0.40-0.90); GLUCOSE 144 MG/DL (70-104); MAGNESIUM 2.1 MG/DL (1.5-2.4); POTASSIUM 3.1 MMOL/L (3.5-5.1); SODIUM 140 MMOL/L (135-145); TOTAL CARBON DIOXIDE 27.3 MMOL/L (24-32); eCRCL 23 ML/MIN; eGFR 33 ML/MIN
[2024-04-02 08:04] LABS: BASOPHILS % (AUTO) 0.4 % (0-1); EOSINOPHILS % (AUTO) 0.1 % (0-6); LYMPHOCYTES # (AUTO) 0.3 X10'3 (1.1-4.8); LYMPHOCYTES % (AUTO) 7.4 % (21-51); MEAN PLATELET VOLUME 7.8 FL (7.4-10.4); MONOCYTES % (AUTO) 1.2 % (2-12); NEUTROPHILS # (AUTO) 3.3 X10'3 (1.8-7.7); NEUTROPHILS % (AUTO) 90.9 % (42-75); PLATELET COUNT 297 X10'3 (140-440); WHITE BLOOD COUNT 3.6 X10'3 (4.5-11.0)
[2024-04-02 08:25] LABS: HEMATOCRIT 35.2 % (35.0-45.0); HEMOGLOBIN 11.1 g/dl (12.0-16.0); MEAN CORPUSCULAR HEMOGLOBIN 24.5 PG (27.0-31.0); MEAN CORPUSCULAR HGB CONC 31.6 g/dL (33.0-36.5); MEAN CORPUSCULAR VOLUME 77.6 FL (78-98); RED BLOOD COUNT 4.54 X10'6 (4.20-5.60); RED CELL DISTRIBUTION WIDTH 24.2 % (11.5-14.5)
[2024-04-02] MEDS: potassium Cl 20 mEq SR tablet PO PRN (16:22)
[2024-04-02] MEDS: insulin glargine (Lantus) pen - multi-dose SQ SCH (21:00)
[2024-04-03 02:00] VITALS: BP 98/65; PULSE 85; RESP 21; TEMP 97.6; O2SAT 96
[2024-04-03 05:01] LABS: BASOPHILS % (AUTO) 0.2 % (0-1); EOSINOPHILS % (AUTO) 0 % (0-6); HEMOGLOBIN 10.7 g/dl (12.0-16.0); LYMPHOCYTES # (AUTO) 0.3 X10'3 (1.1-4.8); MEAN PLATELET VOLUME 7.9 FL (7.4-10.4); MONOCYTES # (AUTO) 0.5 X10'3 (0-0.9); MONOCYTES % (AUTO) 8.7 % (2-12); NEUTROPHILS # (AUTO) 4.8 X10'3 (1.8-7.7); NEUTROPHILS % (AUTO) 86.1 % (42-75); PLATELET COUNT 358 X10'3 (140-440); WHITE BLOOD COUNT 5.5 X10'3 (4.5-11.0)
[2024-04-03 05:22] LABS: ALANINE AMINOTRANSFERASE 9 U/L (12-78); ALBUMIN 3.1 G/DL (3.4-5.0); ALBUMIN/GLOBULIN RATIO 0.8 (1.1-1.5); ALKALINE PHOSPHATASE 114 IU/L (46-116); ANION GAP 12 (8-16); ASPARTATE AMINO TRANSFERASE 22 U/L (10-37); BILIRUBIN,TOTAL 0.9 MG/DL (0.1-1.0); BLOOD UREA NITROGEN 38 MG/DL (7-18); CALCIUM 9.2 MG/DL (8.5-10.1); CHLORIDE 101 MMOL/L (99-107); CREATININE 1.73 MG/DL (0.40-0.90); GLUCOSE 228 MG/DL (70-104); MAGNESIUM 2.2 MG/DL (1.5-2.4); SODIUM 139 MMOL/L (135-145); TOTAL CARBON DIOXIDE 26.1 MMOL/L (24-32); TOTAL PROTEIN 6.9 G/DL (6.4-8.2); eCRCL 20 ML/MIN; eGFR 29 ML/MIN
[2024-04-03 05:37] LABS: HEMATOCRIT 33.8 % (35.0-45.0); MEAN CORPUSCULAR HEMOGLOBIN 24.4 PG (27.0-31.0); MEAN CORPUSCULAR HGB CONC 31.7 g/dL (33.0-36.5); RED CELL DISTRIBUTION WIDTH 24.2 % (11.5-14.5)
[2024-04-03 07:29] VITALS: BP 100/62
[2024-04-03] MEDS ORDERED: LEVO-65 PO (08:00)
[2024-04-03] MEDS: levoFLOXACIN 250mg tablet PO ONE (08:30)
[2024-04-03 08:40] VITALS: RESP 16; O2SAT 99
[2024-04-03] MEDS ORDERED: LANTUS SQ (10:24)
[2024-04-03] MEDS ORDERED: FURO40TA4 PO (10:24)
[2024-04-03] MEDS ORDERED: PRED10TA23 PO (10:24)
[2024-04-03] MEDS ORDERED: INSU100V11 SQ (10:24)
[2024-04-12] MEDS ORDERED: ASPI-1265 PO (19:06)
[2024-04-12] MEDS ORDERED: METO-395 PO (19:06)
[2024-04-12] MEDS ORDERED: LEVO25TA2 PO (19:06)
[2024-04-12] MEDS ORDERED: EMPA10TA PO (19:06)
[2024-04-12] MEDS ORDERED: PRED10TA (19:06)
[2024-04-12] MEDS ORDERED: INSU100I31 (19:06)
[2024-04-12] MEDS ORDERED: EZET10TA6 PO (19:06)
[2024-04-12] MEDS ORDERED: INSU100V49 (19:06)
[2024-04-15] MEDS ORDERED: ATOR20TA66 PO (10:41)
[2024-04-15] MEDS ORDERED: LANTUS SQ (10:41)
[2024-04-15] MEDS ORDERED: INSU100I8 SQ (10:41)
[2024-04-15] MEDS ORDERED: CLIN-97 PO (17:49)
== END 2024-04-03 11:28 | disposition home health service (06) | DRG 189 ==
LOC: ER 03:54 → ED HOLD 07:33 → PCU 3S 12:26
PROVIDERS: ADMIT Internal Medicine; ATTEND Internal Medicine
DX: J96.01 Acute respiratory failure with hypoxia (principal); I50.23 Acute on chronic systolic (congestive) heart failure; I13.0 Hypertensive heart and chronic kidney disease with heart failure and stage 1 through stage 4 chronic kidney disease, or unspecified chronic kidney disease; L03.116 Cellulitis of left lower limb; J44.1 Chronic obstructive pulmonary disease with (acute) exacerbation; I48.19 Other persistent atrial fibrillation; N39.0 Urinary tract infection, site not specified; Z20.822 Contact with and (suspected) exposure to COVID-19; I25.10 Atherosclerotic heart disease of native coronary artery without angina pectoris; I27.20 Pulmonary hypertension, unspecified; I65.23 Occlusion and stenosis of bilateral carotid arteries; I34.0 Nonrheumatic mitral (valve) insufficiency; I25.5 Ischemic cardiomyopathy; N18.30 Chronic kidney disease, stage 3 unspecified; E78.00 Pure hypercholesterolemia, unspecified; E11.51 Type 2 diabetes mellitus with diabetic peripheral angiopathy without gangrene; E11.22 Type 2 diabetes mellitus with diabetic chronic kidney disease; E03.9 Hypothyroidism, unspecified; Z88.1 Allergy status to other antibiotic agents; Z88.0 Allergy status to penicillin; Z79.82 Long term (current) use of aspirin; Z79.4 Long term (current) use of insulin; Z79.899 Other long term (current) drug therapy; Z95.1 Presence of aortocoronary bypass graft; Z98.84 Bariatric surgery status; Z95.818 Presence of other cardiac implants and grafts; Z87.891 Personal history of nicotine dependence; B95.2 Enterococcus as the cause of diseases classified elsewhere; B96.89 Other specified bacterial agents as the cause of diseases classified elsewhere
CPT/HCPCS: 36415; 71045; 80053; 81001; 82948; 83735; 83880; 84484; 85008; 85025; 85610; 85730; 87077; 87081; 87088; 87186; 87811; 93005; 93308; 93922; 94660; 94760; 96365; 96367; 96375; 97161; 97530; 99291; A4620; A6213; A6222; A6223; A6258; A6446; A6449; G0378; J0282; J0690; J0696; J1644; J1815; J1940; J2405; J2919; J3490; J7040

== ENCOUNTER 2024-05-27 13:56 | Inpatient (IN) | payer MEDICARE ==
[~2024-05-27] VITALS: Ht 149.9 cm; Wt 56.8 kg
[~2024-05-27 13:56] MED LIST changes: -ASPI-1071 PO; +ASPI-1265 PO; +ATOR20TA66 PO; +CLIN-97 PO; +EZET10TA6 PO; +FURO40TA4 PO; +INSU100I8 SQ; -INSU100V11 SQ; +LANTUS SQ; +LEVO25TA2 PO; -LEVO25TA7 PO; +POTA-207 PO; -ROSU10TA2 PO
[2024-05-27 15:24] LABS: BASOPHILS # (AUTO) 0.1 X10'3 (0-0.2); BASOPHILS % (AUTO) 1.1 % (0-1); EOSINOPHILS # (AUTO) 0.1 X10'3 (0-0.9); EOSINOPHILS % (AUTO) 1.1 % (0-6); HEMATOCRIT 39.3 % (35.0-45.0); HEMOGLOBIN 12.3 g/dl (12.0-16.0); LYMPHOCYTES # (AUTO) 0.4 X10'3 (1.1-4.8); LYMPHOCYTES % (AUTO) 6.6 % (21-51); MEAN CORPUSCULAR HEMOGLOBIN 25.8 PG (27.0-31.0); MEAN CORPUSCULAR HGB CONC 31.2 g/dL (33.0-36.5); MEAN CORPUSCULAR VOLUME 82.6 FL (78-98); MEAN PLATELET VOLUME 7.9 FL (7.4-10.4); MONOCYTES # (AUTO) 0.6 X10'3 (0-0.9); MONOCYTES % (AUTO) 9.9 % (2-12); NEUTROPHILS # (AUTO) 5.2 X10'3 (1.8-7.7); NEUTROPHILS % (AUTO) 81.3 % (42-75); PLATELET COUNT 261 X10'3 (140-440); RED BLOOD COUNT 4.76 X10'6 (4.20-5.60); RED CELL DISTRIBUTION WIDTH 24.2 % (11.5-14.5); WHITE BLOOD COUNT 6.4 X10'3 (4.5-11.0)
[2024-05-27 15:46] LABS: ALANINE AMINOTRANSFERASE 42 U/L (12-78); ALBUMIN 3.8 G/DL (3.4-5.0); ALBUMIN/GLOBULIN RATIO 1.2 (1.1-1.5); ALKALINE PHOSPHATASE 157 IU/L (46-116); ANION GAP 16 (8-16); ANISOCYTOSIS 3+; ASPARTATE AMINO TRANSFERASE 72 U/L (10-37); BILIRUBIN,TOTAL 1.5 MG/DL (0.1-1.0); BLOOD UREA NITROGEN 55 MG/DL (7-18); BUN/CREATININE RATIO 37.2 (10.0-20.0); CALCIUM 10.1 MG/DL (8.5-10.1); CHLORIDE 104 MMOL/L (99-107); CREATININE 1.48 MG/DL (0.40-0.90); GLUCOSE 208 MG/DL (70-104); MICROCYTOSIS 1+; POTASSIUM 5.1 MMOL/L (3.5-5.1); PRO BRAIN NATRIURETIC PEPTIDE 21995 PG/ML (0-125); SODIUM 137 MMOL/L (135-145); TOTAL CARBON DIOXIDE 17.1 MMOL/L (24-32); TOTAL PROTEIN 6.9 G/DL (6.4-8.2); eCRCL 23 ML/MIN; eGFR 35 ML/MIN
[2024-05-27 15:47] LABS: POLYCHROMASIA 2+
[2024-05-27 15:48] LABS: HYPOCHROMASIA 1+
[2024-05-27 15:50] LABS: TARGET CELLS 1+; TEAR DROP CELLS 1+
[2024-05-27 15:51] LABS: SPHEROCYTES 2+
[2024-05-27 16:13] LABS: PLATELET ESTIMATE NORMAL
[2024-05-27] MEDS: metoprolol tartrate 1mg/ml inj IV ONE ×2 (16:18→18:28)
[2024-05-27] MEDS: metoprolol tartrate 50mg tablet PO ONE (18:20)
[2024-05-27] MEDS: furosemide 40mg/4ml inj IV ONE (18:29)
[2024-05-27] MEDS ORDERED: albuterol 2.5 MG/3 ML nebule NEB PRN (19:45)
[2024-05-27] MEDS ORDERED: magnesium Cl slow-release 64mg tablet PO PRN (19:45)
[2024-05-27] MEDS ORDERED: potassium Cl 40MEQ/1/2NS 520ml 520 ML IV PRN (19:45)
[2024-05-27] MEDS ORDERED: magnesium sulf-water 2g/50mL 50 ML IV PRN (19:45)
[2024-05-27] MEDS ORDERED: potassium Cl 20 mEq SR tablet PO PRN (19:45)
[2024-05-27] MEDS ORDERED: ondansetron/PF 4mg/2ml inj IV PRN (19:45)
[2024-05-27] MEDS ORDERED: acetaminophen 325mg tablet PO PRN (19:45)
[2024-05-27] MEDS ORDERED: magnesium sulf-water 4G/100mL 100 ML IV PRN (19:45)
[2024-05-27] MEDS ORDERED: dextrose 50%-water 50ml dispensing syringe IV PRN ×2 (19:55)
[2024-05-27] MEDS ORDERED: DEXTROSE 15 GM of carb/4 tabs (each vial/BOTTLE has 4 tablets) PO PRN ×2 (19:55)
[2024-05-27] MEDS ORDERED: glucagon, human recombinant 1mg kit SUBCUT PRN (19:55)
[2024-05-27] MEDS: docusate sod 100mg capsule PO SCH (20:00)
[2024-05-27] MEDS: K and/or MAG REPLACEMENT MC SCH (20:00)
[2024-05-27] MEDS ORDERED: insulin glargine (Lantus) pen - multi-dose SQ SCH (21:00)
[2024-05-27] MEDS: insulin glargine (Lantus) VIAL- multi-dose SQ SCH (21:00)
[2024-05-27] MEDS: heparin, porcine 5000 units/ml vial SQ SCH (22:12)
[2024-05-27 22:30] VITALS: BP 97/59; PULSE 99; RESP 13; TEMP 97.9; O2SAT 94
[2024-05-27 23:00] VITALS: RESP 13
[2024-05-28] VITALS (16 sets, daily range): BP systolic 86–117; BP diastolic 38–81; PULSE 62–130; RESP 14–30; TEMP 97.3–98.8; O2SAT 93–98
[2024-05-28 06:19] LABS: BASOPHILS % (AUTO) 1.4 % (0-1); EOSINOPHILS % (AUTO) 0.7 % (0-6); LYMPHOCYTES # (AUTO) 0.3 X10'3 (1.1-4.8); NEUTROPHILS # (AUTO) 2.2 X10'3 (1.8-7.7)
[2024-05-28 06:21] LABS: HEMATOCRIT 37.8 % (35.0-45.0); LYMPHOCYTES % (AUTO) 8.9 % (21-51); MEAN CORPUSCULAR HGB CONC 31.7 g/dL (33.0-36.5); MEAN CORPUSCULAR VOLUME 82.1 FL (78-98); MEAN PLATELET VOLUME 7.8 FL (7.4-10.4); MONOCYTES # (AUTO) 0.7 X10'3 (0-0.9); MONOCYTES % (AUTO) 22.5 % (2-12); NEUTROPHILS % (AUTO) 66.5 % (42-75); PLATELET COUNT 236 X10'3 (140-440); RED CELL DISTRIBUTION WIDTH 24.2 % (11.5-14.5); WHITE BLOOD COUNT 3.2 X10'3 (4.5-11.0)
[2024-05-28 06:34] LABS: ALBUMIN 3.4 G/DL (3.4-5.0); ANION GAP 13 (8-16); BLOOD UREA NITROGEN 54 MG/DL (7-18); BUN/CREATININE RATIO 33.1 (10.0-20.0); CALCIUM 9.5 MG/DL (8.5-10.1); CHLORIDE 103 MMOL/L (99-107); CREATININE 1.63 MG/DL (0.40-0.90); PHOSPHORUS 5.1 MG/DL (2.3-4.5); SODIUM 137 MMOL/L (135-145); TOTAL CARBON DIOXIDE 20.6 MMOL/L (24-32); eCRCL 21 ML/MIN; eGFR 31 ML/MIN
[2024-05-28 06:35] LABS: BILIRUBIN,URINE NEGATIVE (Neg); CLARITY,URINE CLEAR (Clear); COLOR,URINE YELLOW (Yellow); GLUCOSE, URINE NEGATIVE (Neg); KETONES,URINE NEGATIVE (Neg); LEUKOCYTE ESTERASE ,URINE NEGATIVE (Neg); NITRITES, URINE NEGATIVE (Neg); OCCULT BLOOD,URINE NEGATIVE (Neg); PROTEIN,URINE NEGATIVE (Neg); UROBILINOGEN,URINE 0.2 E.U/dL (0.2-1.0)
[2024-05-28 06:36] LABS: UA COLLECTION TYPE NON-SPECIFIED
[2024-05-28] MEDS ORDERED: furosemide 40mg/4ml inj IV SCH (08:00)
[2024-05-28] MEDS: metoprolol succinate 25mg (24-HOUR) SR. Tablet PO SCH (08:00)
[2024-05-28 08:13] LABS: ANISOCYTOSIS 3+; PLATELET ESTIMATE NORMAL; TOTAL CELLS COUNTED 100
[2024-05-28 08:14] LABS: LARGE PLATELETS FEW
[2024-05-28 08:15] LABS: MICROCYTOSIS 1+
[2024-05-28] MEDS: INSULIN LISPRO 100 UNIT/ML INSULN.PEN MULTI-DOSE SQ SCH (09:00)
[2024-05-28] MEDS: furosemide 40mg/4ml inj IV SCH (09:35)
[2024-05-28] MEDS: levoTHYROXINE 25mcg tablet PO SCH (09:35)
[2024-05-28] MEDS: EMPAGLIFLOZIN 10 MG TABLET PO SCH (09:35)
[2024-05-28] MEDS: atorvastatin 20mg tablet PO SCH (09:35)
[2024-05-28 09:59] LABS: MAGNESIUM 2.2 MG/DL (1.5-2.4)
[2024-05-28 10:04] LABS: GLUCOSE 134 MG/DL (70-104)
[2024-05-28] MEDS: aspirin 81mg tab.chew PO SCH (12:00)
[2024-05-28] MEDS: digoxin 250mcg (0.25mg) tablet PO ONE (16:41)
[2024-05-28] MEDS: apixaban 5mg tablet PO SCH (19:56)
[2024-05-28] MEDS: amiodarone 200mg tablet PO SCH (19:56)
[2024-05-28] MEDS: amiodarone 150mg/dext, iso-os 100 ML IV ONE (22:15)
[2024-05-28] MEDS: amiodarone/D5 360MG/200ML BAG 200 ML IV SCH (22:38)
[2024-05-29] VITALS (11 sets, daily range): BP systolic 85–124; BP diastolic 49–92; PULSE 74–102; RESP 22–28; TEMP 96.8–98.6; O2SAT 96–99
[2024-05-29] MEDS: guaiFENesin/DM 10ml UD oral syrup PO PRN (03:34)
[2024-05-29 04:52] LABS: EOSINOPHILS % (AUTO) 0.1 % (0-6); HEMOGLOBIN 11.9 g/dl (12.0-16.0); LYMPHOCYTES # (AUTO) 0.4 X10'3 (1.1-4.8); WHITE BLOOD COUNT 3.4 X10'3 (4.5-11.0)
[2024-05-29 04:55] LABS: BASOPHILS % (AUTO) 0.9 % (0-1); HEMATOCRIT 37.8 % (35.0-45.0); LYMPHOCYTES % (AUTO) 12.4 % (21-51); MEAN CORPUSCULAR HEMOGLOBIN 25.7 PG (27.0-31.0); MEAN CORPUSCULAR HGB CONC 31.4 g/dL (33.0-36.5); MEAN CORPUSCULAR VOLUME 81.7 FL (78-98); MEAN PLATELET VOLUME 7.6 FL (7.4-10.4); MONOCYTES # (AUTO) 0.9 X10'3 (0-0.9); NEUTROPHILS % (AUTO) 59.6 % (42-75); PLATELET COUNT 200 X10'3 (140-440); RED BLOOD COUNT 4.62 X10'6 (4.20-5.60)
[2024-05-29 05:13] LABS: NUCLEATED RED BLOOD CELLS 1 /100WBC (0-0); TOTAL CELLS COUNTED 100
[2024-05-29 05:30] LABS: FREE T4 (FREE THYROXINE) 1.25 NG/DL (0.73-1.40); MAGNESIUM 1.9 MG/DL (1.5-2.4); PHOSPHORUS 3.9 MG/DL (2.3-4.5); THYROID STIMULATING HORMONE 1.72 ulU/ml (0.34-4.50)
[2024-05-29] MEDS: potassium Cl 20 mEq SR tablet PO PRN (05:48)
[2024-05-29 09:30] LABS: ALANINE AMINOTRANSFERASE 133 U/L (12-78); ALBUMIN 3.3 G/DL (3.4-5.0); ALBUMIN/GLOBULIN RATIO 1.1 (1.1-1.5); ALKALINE PHOSPHATASE 140 IU/L (46-116); ANION GAP 12 (8-16); ASPARTATE AMINO TRANSFERASE 196 U/L (10-37); BILIRUBIN,TOTAL 1.2 MG/DL (0.1-1.0); BLOOD UREA NITROGEN 51 MG/DL (7-18); BUN/CREATININE RATIO 34.5 (10.0-20.0); CALCIUM 9.2 MG/DL (8.5-10.1); CHLORIDE 101 MMOL/L (99-107); CREATININE 1.48 MG/DL (0.40-0.90); GLUCOSE 124 MG/DL (70-104); POTASSIUM 3.5 MMOL/L (3.5-5.1); SODIUM 138 MMOL/L (135-145); TOTAL CARBON DIOXIDE 25.4 MMOL/L (24-32); TOTAL PROTEIN 6.2 G/DL (6.4-8.2); eCRCL 23 ML/MIN; eGFR 35 ML/MIN
[2024-05-29] MEDS: digoxin 250mcg (0.25mg) tablet PO SCH (11:23)
[2024-05-29] MEDS: metoprolol succinate 25mg (24-HOUR) SR. Tablet PO SCH (11:25)
[2024-05-29] MEDS ORDERED: METO-395 PO (13:11)
[2024-05-29] MEDS: heparin, porcine 5000 units/ml vial SQ SCH (19:56)
[2024-05-29] MEDS: insulin glargine (Lantus) pen - multi-dose SQ SCH (21:49)
[2024-05-30 02:00] VITALS: BP 112/69; PULSE 110; RESP 29; TEMP 97.6; O2SAT 98
[2024-05-30 05:12] LABS: HEMOGLOBIN 11.7 g/dl (12.0-16.0); NEUTROPHILS # (AUTO) 2.1 X10'3 (1.8-7.7); NEUTROPHILS % (AUTO) 60.9 % (42-75)
[2024-05-30 05:16] LABS: BASOPHILS % (AUTO) 0.7 % (0-1); EOSINOPHILS % (AUTO) 0.2 % (0-6); HEMATOCRIT 36.4 % (35.0-45.0); LYMPHOCYTES # (AUTO) 0.6 X10'3 (1.1-4.8); LYMPHOCYTES % (AUTO) 16.3 % (21-51); MEAN CORPUSCULAR HEMOGLOBIN 25.7 PG (27.0-31.0); MEAN CORPUSCULAR HGB CONC 32.1 g/dL (33.0-36.5); MEAN CORPUSCULAR VOLUME 80.2 FL (78-98); MEAN PLATELET VOLUME 7.8 FL (7.4-10.4); MONOCYTES # (AUTO) 0.7 X10'3 (0-0.9); MONOCYTES % (AUTO) 21.9 % (2-12); PLATELET COUNT 204 X10'3 (140-440); RED BLOOD COUNT 4.55 X10'6 (4.20-5.60); RED CELL DISTRIBUTION WIDTH 23.5 % (11.5-14.5); WHITE BLOOD COUNT 3.4 X10'3 (4.5-11.0)
[2024-05-30 05:36] LABS: ALBUMIN 3.1 G/DL (3.4-5.0); ANION GAP 11 (8-16); BLOOD UREA NITROGEN 56 MG/DL (7-18); BUN/CREATININE RATIO 37.6 (10.0-20.0); CHLORIDE 102 MMOL/L (99-107); CREATININE 1.49 MG/DL (0.40-0.90); GLUCOSE 138 MG/DL (70-104); MAGNESIUM 1.8 MG/DL (1.5-2.4); PHOSPHORUS 3.6 MG/DL (2.3-4.5); POTASSIUM 4.1 MMOL/L (3.5-5.1); SODIUM 138 MMOL/L (135-145); TOTAL CARBON DIOXIDE 24.9 MMOL/L (24-32); eCRCL 23 ML/MIN; eGFR 34 ML/MIN
[2024-05-30 05:40] LABS: TOTAL CELLS COUNTED 100
[2024-05-30 06:00] VITALS: BP 94/56; PULSE 100; RESP 19; TEMP 97.4; O2SAT 97
[2024-05-30 08:00] VITALS: RESP 19; O2SAT 97
[2024-05-30 08:43] VITALS: PULSE 86
[2024-05-30] MEDS: furosemide 40mg/4ml inj IV SCH (08:56)
== END 2024-05-30 16:48 | disposition home health service (06) | DRG 280 ==
LOC: ER 13:57 → ED HOLD 20:39 → PCU 3S 22:35
PROVIDERS: ADMIT Internal Medicine Critical Care Medicine; ATTEND Nurse Practitioner Family
DX: I13.0 Hypertensive heart and chronic kidney disease with heart failure and stage 1 through stage 4 chronic kidney disease, or unspecified chronic kidney disease (principal); I50.23 Acute on chronic systolic (congestive) heart failure; I21.A1 Myocardial infarction type 2; I48.0 Paroxysmal atrial fibrillation; Z20.822 Contact with and (suspected) exposure to COVID-19; E03.9 Hypothyroidism, unspecified; E78.00 Pure hypercholesterolemia, unspecified; I25.10 Atherosclerotic heart disease of native coronary artery without angina pectoris; I25.5 Ischemic cardiomyopathy; Z66 Do not resuscitate; J44.9 Chronic obstructive pulmonary disease, unspecified; Z79.84 Long term (current) use of oral hypoglycemic drugs; Z80.8 Family history of malignant neoplasm of other organs or systems; Z82.49 Family history of ischemic heart disease and other diseases of the circulatory system; Z83.3 Family history of diabetes mellitus; Z95.1 Presence of aortocoronary bypass graft; Z95.818 Presence of other cardiac implants and grafts; Z98.84 Bariatric surgery status; I95.9 Hypotension, unspecified; E11.22 Type 2 diabetes mellitus with diabetic chronic kidney disease; N18.30 Chronic kidney disease, stage 3 unspecified; I34.0 Nonrheumatic mitral (valve) insufficiency; I27.20 Pulmonary hypertension, unspecified; E11.51 Type 2 diabetes mellitus with diabetic peripheral angiopathy without gangrene
CPT/HCPCS: 36415; 71045; 76700; 80048; 80053; 81003; 82948; 83735; 83880; 84100; 84439; 84443; 84484; 85007; 85008; 85025; 87081; 87502; 87503; 87811; 93005; 93925; 94760; 97116; 97161; 97530; 99291; A4615; A6213; A6446; A6449; G0378; J0282; J1644; J1815; J1940; J3490